=== PATIENT | male | born 1995 | race Caucasian/White ===

== ENCOUNTER 2016-01-22 15:08 | Inpatient (IN) | payer OTHER ==
[2016-01-22 15:53] LABS: % IMMATURE GRANULYOCYTES 0.3 % (0.0-1.1); ABSOLUTE IMMATURE GRANULOCYTES 0.02 10^3/uL (0.00-0.10); ADD DIFF? NO; ADD MORPH? NO; ADD SCAN? NO; ATYPICAL LYMPHOCYTE FLAG 10 (0-99); FRAGMENT RBC FLAG 0 (0-99); HEMATOCRIT 49.3 % (40.0-51.0); HEMOGLOBIN 17.2 g/dL (13.7-17.5); LEFT SHIFT FLG 0 (0-99); LIPEMIA HEMOLYSIS FLAG 90 (0-99); MEAN CELL HEMOGLOBIN 31.7 pg (27.9-34.1); MEAN CELL HEMOGLOBIN CONCENTR. 34.9 g/dL (32.4-36.7); MEAN PLATELET VOLUME 8.9 fL (8.7-11.7); PLATELET CLUMPS FLAG 0 (0-99); PLATELET COUNT 341 10^3/uL (150-400); RED BLOOD CELL COUNT 5.42 10^6/uL (4.40-6.38); RED CELL DISTRIBUTION WIDTH 11.3 % (11.5-15.2)
--- NOTE | 2016-01-22 16:07 | EDPHY ---
H & P Smoking Status: Never smoked Time Seen by Provider: 01/22/16 15:25 HPI/ROS: Hallucinations, paranoia. 20-year-old male who presents via private vehicle. Per father, he had been traveling around the country with his mother (who is schizophrenic) from October 2014 to October 2015. When he returned to his father's care his father reported that he was a completely different person. His father notes he seemed to be having auditory and visual hallucinations and has become more paranoid. He denies SI or HI at this time. He reports that while traveling around he hit his head on a rock in [place] but has no other medical complaints at this time. Constitutional: No fever, no chills. No weakness. Eyes: No discharge. No changes in vision. ENT: No sore throat. No nasal congestion or rhinorrhea. Respiratory: No cough. No shortness of breath. Cardiac: No chest pain, no palpitations. Gastrointestinal: No abdominal pain, no vomiting, no diarrhea. Genitourinary: No hematuria. No dysuria or increased frequency with urination. Musculoskeletal: No back pain. No neck pain. No myalgias or arthralgias. Skin: No rashes. Neurological: No headache. No focal weakness or altered sensation. Past medical history: Denies. Social history: Here with father. General Appearance: Alert, no distress. This patient is responding to questions appropriately and in full sentences. This patient appears well- hydrated and well-nourished. Eyes: Pupils equal and round no pallor or injection. No lid edema, erythema or injection. Head: Normocephalic atraumatic. Respiratory: There are no retractions, lungs are clear to auscultation with good air movement bilaterally. Cardiovascular: Regular rate and rhythm. No murmur. Gastrointestinal: Abdomen is soft and nontender, no masses, bowel sounds normal. No focal tenderness at McBurney's point. No Ahmadi sign. Neurological: Motor sensory function is grossly intact. Cranial nerves are normal. Gait is normal. Skin: Warm and dry, no rashes. Musculoskeletal: Neck is supple and nontender. No midline or paracervical C- spine tenderness. Extremities are symmetrical. All joints range without pain or impingement. Psychiatric: No agitation. Flat affect. EKG: Imaging: Procedures: Emergency department course: The patient has been offered Zyprexa, which he initially declined. He understands that he can request this at any time. He was medically cleared by myself at 4:30 p.m.. Behavioral Health is aware. 8:50 p.m., no further issues during my shift. Patient is to be evaluated by Behavioral Health. This should occur shortly. His care was turned over to Dr. Isidro Keen at 9:00 p.m.. The differential diagnosis on this patient includes but is not limited to schizophrenia, bipolar, mood disorder. This represents a partial list of diagnoses considered. These considerations are based on history, physical exam , past history, reassessment and diagnostic testing. (Juan Winchester) Constitutional: Initial Vital Signs Temperature (C) 36.7 C 01/22/16 15:15 Heart Rate 82 01/22/16 15:15 Respiratory Rate 16 01/22/16 15:15 Blood Pressure 138/92 H 01/22/16 15:15 O2 Sat (%) 97 01/22/16 15:15 O2 Delivery Mode Room Air Allergies/Adverse Reactions: No Known Allergies Allergy (Unverified 01/22/16 15:15) Home Medications: Medication Instructions Recorded NK [No Known Home Meds] 01/22/16 Medical Decision Making ED Course/Re-evaluation: 2199: Patient signed over to me at 9:00 p.m. shift change. no acute events for the brief period of time that I have had. Patient is voluntary and pending evaluation. Patient having increasing auditory visual hallucinations most likely underlying schizophrenia. Patient be signed over to Dr. Kinney at 10PM shift change. Need EVAL. (Isidro Keen) 2:36 a.m.- I have received sign-out on this patient from Dr. Keen at change of shift at approximately 10:30 p.m. last night. Patient has remained stable during his time in the emergency room. He was just evaluated by the mental health worker who feels that he needs inpatient hospitalization. We have placed him on an M1 hold. The attending psychiatrist has recommended medication for him including Benadryl, Risperdal, Ativan I will order this for him. [facility]. 6:30 a.m.- The patient has remained stable throughout the remainder of my shift. He is awaiting inpatient hospitalization. The case will be signed out at 7:[address] Amato. (Haritha Kinney) Other Provider: Patient's care transferred to [facility] at 7:00 a.m.. Patient has what appears to be new onset schizophrenia is having auditory hallucinations. He has been medically cleared and evaluated by Mental Health. They plan to place him likely at [address] [place] [address]. 12:50 p.m. the patient has been evaluated by Mental Health. He has been accepted at [address] [place] [address]. I have completed transfer paperwork. Accepted by Dr. Medina. (Gregory Amato) - Data Points Laboratory Results: Laboratory Results 01/22/16 15:40 01/22/16 15:40 Medications Given: Discontinued Medications Diphenhydramine HCl (Benadryl) 50 mg PO EDNOW ONE Stop: 01/23/16 02:38 Last Admin: 01/23/16 02:50 Dose: 50 mg Lorazepam (Ativan) 1 mg PO EDNOW ONE Stop: 01/23/16 01:06 Last Admin: 01/23/16 01:10 Dose: 1 mg Risperidone (Risperdal) 2 mg PO ONCE ONE Stop: 01/23/16 02:38 Last Admin: 01/23/16 02:50 Dose: 2 mg Departure - Departure Disposition: [facility] IP Clinical Impression: Hallucinations, Paranoia Condition: Fair Report Scribed for: Juan Winchester Report Scribed by: Juan Diego Singh Date of Report: 01/22/16 Time of Report: 16:07
[2016-01-22 16:23] LABS: ANION GAP 17 mEq/L (8-20); CALCIUM 9.6 mg/dL (8.5-10.4); CARBON DIOXIDE 27 mEq/l (22-31); CHLORIDE 103 mEq/L (97-110); CREATININE 1.3 mg/dL (0.7-1.3); ETHANOL SERUM < 10 mg/dL (0-10); GLOMERULAR FILTRATION RATE > 60; GLUCOSE 81 mg/dL (70-100); POTASSIUM 4.3 mEq/L (3.5-5.2); SODIUM 143 mEq/L (134-144)
[2016-01-23] MEDS ORDERED: LORazepam 1 MG TAB PO ONE (01:05)
[2016-01-23] MEDS ORDERED: diphenhydrAMINE 25 MG CAP PO ONE (02:37)
[2016-01-23] MEDS ORDERED: risperiDONE 2 MG TAB PO ONE (02:37)
[2016-01-23 03:01] LABS: ALBUMIN 4.8 g/dL (3.5-5.0); BILIRUBIN,TOTAL 0.7 mg/dL (0.1-1.4); BILIRUBIN-CONJUGATED 0.3 mg/dL (0.0-0.5); BILIRUBIN-UNCONJUGATED 0.4 mg/dL (0.0-1.1); TOTAL PROTEIN 7.8 g/dL (6.3-8.2)
[2016-01-23] MEDS ORDERED: MAG HYDROX/AL HYDROX/SIMETH 30 ML UDCUP PO PRN (17:10)
[2016-01-23] MEDS ORDERED: NICOTINE POLACRILEX 2 MG GUM B PRN (17:10)
[2016-01-23] MEDS ORDERED: ACETAMINOPHEN 325 MG TAB PO PRN (17:10)
[2016-01-23] MEDS ORDERED: OLANZapine DISINTEGR 10 MG TAB PO PRN (17:10)
[2016-01-23] MEDS ORDERED: MAGNESIUM HYDROXIDE 30 ML UDCUP PO PRN (17:10)
--- NOTE | 2016-01-24 14:13 | BAPA ---
[f rep st] ADMISSION PSYCHIATRIC ASSESSMENT DATE OF SERVICE: 01/24/2016 CHIEF COMPLAINT: "I might have a lack of energy in my brain." HISTORY OF PRESENT ILLNESS: Patient is a 20-year-old male with no recent formal psychiatric diagnosi s or treatment. He states that he was diagnosed with attention deficit hyperactivity disorder in the 3rd grade and briefly took Adderall, but other than that, has had no interaction, by his report, wit h the mental health system. He was brought in by his father on the day prior to [facility] due to some odd behaviors. He had apparently been feeling paranoid by his own desc ription and by his father's observations. He believed others were talking about him, and he stated t hat he thought that people could read his mind. On one occasion, he and his father were in a restaur ant, and he stood up and began yelling at other patrons, stating that they were reading his mind. He was asked to leave by the theatre manager, who threatened to call the police. Patient states that this happ ens to him frequently, where he believes that others can read his mind. He left a note on a neighbor 's door asking him to quit waking him up in the morning because "I am not a Marine." The patient sta amanda that he knows he is not a Marine, but he thought that the other person thought he was a Marine an d furthermore states that he probably had never woken him up. He does describe a process of getting caught up with concepts and thoughts in his head, and then having trouble discriminating reality. He states that this comes from his mother, in his opinion, as he has spent a lot of recent time with rei r. He states that they traveled for over a year living in a van and driving all over the [facility]. He states that they would camp and that she frequently believed people were following [facility] and that there was a group of people wanting to harm them. The patient states that he initially w as able to dismiss this, but as time went on, he also began to feel this way as well. He correlates this, however, with his marijuana use, and states that when they lived in [place] and he was dabbi ng and smoking on a daily basis, that he began to really believe some of the things his mother was sa chavez. The patient recently returned to live with his father approximately a month ago, after his mot her decided to move back to [place] to be near her family. The patient states that she was "really par anoid", and he felt like he would be better off staying with his dad. He has been staying at his fat her's home in [place], but states that he is feeling afraid and lonely there because his father i s gone frequently. He states that his father delivers for [employer] and that he works 6 days a week and with the holidays is gone for long hours at a time. The patient states that he begins to f eel more and more anxious and "I begin looking around wondering who is going to harm me." He then st ates that he believes that "people are reading my mind", and that he is unsafe even in his father's h ome. He reports hearing voices in the past that are very derogatory, but states that he has not hear d these since he left [place]. He states that they correlated directly with dabbing. The patient reports cutting back on his marijuana use, as he notes that it worsens his psychosis, and has only s moked once in the last 2 weeks. He states that he just needs to "detox from all substances." He sta amanda he is not interested in any medications and does not want to do any drugs, but needs a safe place to be while his brain clears. PAST PSYCHIATRIC HISTORY: Significant for no previous psychiatric hospitalizations. He was diagnose d with attention deficit hyperactivity disorder in the 3rd grade and took Adderall briefly. ALLERGIES: No known medical allergies. CURRENT MEDICATIONS: None. PAST MEDICAL HISTORY: Noncontributory. SOCIAL HISTORY: Patient grew up mostly in [place], [place]. His parents were when he was 13. The patient lived with his mother and older brother. He states that his mother began having her own psychiatric problems several years later, causing her to lose her job and the family to lose their home. His older brother then went to live with his father in [place], and the patient howard t with his mother to [place] to live with her family. He states eventually they moved back to [place] , but that his credits did not transfer, and he was unable to graduate from high school. He worked s ome odd jobs, especially in [employer] intermittently, though this was also inconsistent. He spent about a year traveling around with his mother recently. He denies any legal problems or other stress ors. He is not currently employed. He has no history of abuse. He has no history. SUBSTANCE ABUSE HISTORY: Patient states he first used marijuana at the age of 13, and he used up to daily including dabbing since that time. He denies any other drugs. He has used alcohol occasionall y in the past, though not for several years. FAMILY HISTORY: Patient's mother has been diagnosed schizophrenic, and his father has a history of a lcohol abuse in the past. ADMISSION LABORATORY: CBC is normal. Serum chemistries are normal. Liver function is normal. Urin e drug screen shows no substances of abuse, and alcohol is less than detectable. MENTAL STATUS EXAMINATION: Reveals a thin, adequately groomed male. He is dressed appropriately in hospital garb. He interacts well with the examiner, maintaining intermittent, but adequate eye conta ct. He does seem distracted at times, and makes odd facial gestures or grunting noises as if suppres sing either an urge or thought or even somehow responding to internal stimuli. His affect is constri cted, stable, and appropriate. His mood is described as "fine." His thought process is linear and g oal directed except for some possible blocking consistent with this internal preoccupation. His th ght content reveals the reports of paranoia, thought broadcasting, thought insertion, ideas of refere nce, and auditory hallucinations. He is alert and oriented to person, place, time, and situation. H is sensorium is clear. His intellect appears to be average as evidenced by his educational occupatio nal history, his fund of knowledge, and vocabulary. He denies any thoughts of suicide, homicide or v iolence. His insight and judgment appear to be fair. 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 Poss ible schizophrenia chronic paranoid type with acute exacerbation, homelessness, unemployment, mental illness. The patient is a very pleasant 20-year-old male who presents at this time with clear psychotic sympto ms. This certainly could all be due to the cannabis, though the character of it certainly makes one concerned about a thought disorder. He could be having a first break of schizophrenia and, with a st monster family history, this may be likely. He is unwilling currently to take any antipsychotic medicat ions, though I have discussed with him the risks, benefits, and alternatives of Risperdal and have sh own him that I have written it on an as-needed basis and at bedtime. He states he will consider this . Estimated length of stay is 5-7 days. /[id number]/MODL
--- NOTE | 2016-01-24 18:54 | BCON ---
[f rep st] BEHAVIORAL HEALTH CONSULTATION INTERNAL MEDICINE CONSULTATION DATE OF CONSULTATION: 01/24/2016 REFERRING PHYSICIAN: Steve George MD REASON FOR CONSULTATION: Medical clearance for inpatient behavioral health stay. HISTORY OF PRESENT ILLNESS: Mr. Dennis was brought to the emergency department by his father. He had been living with his father for several weeks after traveling for a year with his mother, and his father noticed that he his behavior was quite different, and that he was having auditory and visual hallucinations and becoming paranoid. He was evaluated by the mental health team and admitted for further psychiatric care. He is currently without acute complaints. He says that he was feeling "blurry" earlier today, but then he talked to someone and is not feeling blurry anymore. PAST MEDICAL HISTORY: Reports a history of diagnosis of attention deficit hyperactivity disorder when he was in the 3rd grade and brief treatment with Adderall. Otherwise, he denies any past medical or surgical history. MEDICATIONS: He was on no medications. ALLERGIES: There are no known drug allergies. SOCIAL HISTORY: He never finished high school. He has worked in [employer]. He is a nonsmoker. He has had regular marijuana use since he was an early teenager, but has abstained now for several weeks. He is living with his father. He had previously been traveling with his mother for about a year. FAMILY HISTORY: His mother has mental illness and possibly schizophrenia. Father has a history of alcohol abuse. REVIEW OF SYSTEMS: He reports he has a hard time sitting still. He denies weight loss, cough, dyspnea, nausea, vomiting, diarrhea, or constipation, fevers or chills, and otherwise a 10-point review of systems is negative. PHYSICAL EXAM: VITALS: Blood pressure is 135/82, heart rate is 60, respiratory rate 14, oxygen saturation is 93% on room air, temperature is 36.7 degrees centigrade. His weight is 68 kg for a body mass index of 20.9. GENERAL : This is a well-nourished, well-developed man, appears his chronologic age, cooperative, and in no acute distress. HEENT: Extraocular movements are intact. Pupils are equal, round, reactive to light. Mucous membranes are moist. Dentition is in good condition. There are no oropharyngeal mucosal lesions noted and no posterior oropharyngeal mucus. NECK: Supple. HEART: Regular rate and rhythm with no murmurs, rubs, or gallops. LUNGS: Clear to auscultation bilaterally. ABDOMEN: Soft, nontender, nondistended with normoactive bowel sounds. EXTREMITIES: There is no cyanosis, clubbing, or edema. NEUROLOGIC: He is alert and oriented x3. Cranial nerves 2-12 are grossly intact. There is no focal weakness. Sensation is intact to light touch and gait is within normal limits. He has frequent involuntary movements of his legs and of his facial expressions with raising of the eyebrows, more so on the left than the right, and some movements of his head and his neck. LABORATORY STUDIES: Drawn in the emergency department: CBC was overall within normal limits, but for a slightly low RDW and a very slight deficit to eosinophils by percent of no clinical significance. Serum chemistry revealed normal renal function, electrolytes, and liver functions. Toxicology screen in the serum was negative for ethyl alcohol and the urine was negative for substances of abuse. ASSESSMENT AND PLAN: 1. Mental health issues, pending further evaluation and management per Psychiatry and the mental health team. 2. Involuntary movements of unclear etiology. Advise observing for resolution and might consider a consult with a neurologist if there is no improvement by the time he is discharged. I see no medical contraindications to Mr. Dennis's continued stay in the inpatient behavioral health unit or to any psychiatric medications, or procedures. Thank you very much for including me in the care of Mr. Dennis, and please do not hesitate to contact me or the hospitalist service should there be need for further medical evaluation. /[id number]/MODL MTDD
[2016-01-24] MEDS: RISPERIDONE 1 MG ODT TAB SL SCH (21:27)
--- NOTE | 2016-01-25 12:37 | SOAPPROG ---
SOAP Progress Note Assessment/Plan: Assessment: Plan: 01/25/16 12:37 Remains quite ill. Refusing medication treatment. Will place on STC due to grave disability and continue to encourage compliance. Will monitor to see if sx's improve with distance from substance use. May consider COM if no improvement. Subjective: Pt seen, discussed with staff. Reports feeling "a lot better." Remains isolative and odd, struggling to interact appropriately or communicate effectively with others. He spent most of the morning in bed. He refused the Risperdal last night because he continues to state he does not need any medication. He continues to make odd facial grimaces, possibly in response to internal stimuli though he denies any AH's. Objective: Vital Signs Temp Pulse Resp BP Pulse Ox 36.8 C 71 16 121/78 H 98 01/25/16 06:00 01/25/16 06:00 01/25/16 06:00 01/25/16 06:00 01/25/16 06:00 MSE: Odd interaction. Pt jumps up when I call his name in group room. He then follows directly behind me down the waite to my office. He drops down abruptly onto the chair and faces 90 degrees away from me. He rocks back and forth, eyes darting around the room and floor. Does not make purposeful eye contact. Frequently makes grimacing facial expressions, opening eyes widely and then closing them tightly. He also rolls his eyes as if trying to focus. He makes some odd mouth movements as well, occasionally moaning or grunting. His speech is rapid, soft, slurred at times. He demonstrates some thought blocking, likely due to intrusion of internal stimuli though he denies this. TC reveals very poor insight. States he wants to leave the hospital and get a job. He also states he cannot return to his father's home "because he doesn't want me there." - Time Spent With Patient Time Spent With Patient: 25" - Pending Discharge Pending Discharge Within 24 Hours: No Pending Discharge Within 48 Hours: No ICD10 Worksheet Patient Problems: Problems Problem Status Diagnosed Hallucinations Acute Paranoia Acute
[2016-01-25] MEDS ORDERED: IBUPROFEN 600 MG TAB PO PRN (13:07)
[2016-01-25] MEDS: RISPERIDONE 1 MG ODT TAB SL SCH (20:24)
[2016-01-26] MEDS: RISPERIDONE 1 MG ODT TAB SL SCH (12:53)
--- NOTE | 2016-01-26 16:28 | SOAPPROG ---
SOAP Progress Note Assessment/Plan: Assessment: Plan: 01/25/16 12:37 Remains quite ill. Refusing medication treatment. Will place on STC due to grave disability and continue to encourage compliance. Will monitor to see if sx's improve with distance from substance use. May consider COM if no improvement. 01/26/16 16:27 Remains psychotic. Etiology of abnormal movements is unclear. Will continue to encourage meds, monitor. Subjective: Pt seen, discussed with staff. Reports feeling "just fine." Remains odd, impulsive, agitated at times. Struggles to interact or communicate with others in a reasonable manner. He continues to refuse meds. Objective: Vital Signs Temp Pulse Resp BP Pulse Ox 36.6 C 91 16 128/99 H 96 01/26/16 06:12 01/26/16 06:12 01/26/16 06:12 01/26/16 06:12 01/26/16 06:12 MSE: Notable hyperactivity, fidgety. Makes frequent grimacing facial movements , closely eyes tightly or rolls them. Moves lips as if speaking silently. TP disorganized. TC reveals paranoia, IOR's. - Time Spent With Patient Time Spent With Patient: 25" - Pending Discharge Pending Discharge Within 24 Hours: No Pending Discharge Within 48 Hours: No ICD10 Worksheet Patient Problems: Problems Problem Status Diagnosed Hallucinations Acute Paranoia Acute
--- NOTE | 2016-01-27 16:50 | SOAPPROG ---
SOAP Progress Note Assessment/Plan: Assessment: Plan: 01/25/16 12:37 Remains quite ill. Refusing medication treatment. Will place on STC due to grave disability and continue to encourage compliance. Will monitor to see if sx's improve with distance from substance use. May consider COM if no improvement. 01/26/16 16:27 Remains psychotic. Etiology of abnormal movements is unclear. Will continue to encourage meds, monitor. 01/27/16 16:49 More organized today. I doubt he meets criteria for COM. Will monitor over the and continued to encourage meds. Decide on Saturday whether to pursue COM. Subjective: Pt seen, discussed with staff. Reports feeling "really good." Took the Risperdal yesterday afternoon and states he felt "calmer." He then states he woke up this morning and "felt really weird." He cannot explain what he means by this. He now refuses to take any further meds. CC states pt can return to his father's home. Objective: Vital Signs Temp Pulse Resp BP Pulse Ox 36.6 C 64 16 124/78 H 96 01/27/16 01:06 01/27/16 01:06 01/26/16 06:12 01/27/16 01:06 01/26/16 06:12 - Time Spent With Patient Time Spent With Patient: 25" - Pending Discharge Pending Discharge Within 24 Hours: No Pending Discharge Within 48 Hours: No ICD10 Worksheet Patient Problems: Problems Problem Status Diagnosed Hallucinations Acute Paranoia Acute
[2016-01-27] MEDS: LORazepam 0.5 MG TAB PO PRN (21:15)
[2016-01-27] MEDS: RISPERIDONE 1 MG ODT TAB SL SCH (21:16)
[2016-01-28] MEDS: IBUPROFEN 200 MG TAB PO PRN ×2 (11:04→19:52)
--- NOTE | 2016-01-28 11:22 | SOAPPROG ---
SOAP Progress Note Assessment/Plan: Assessment: 20 yo with hx of ADHD since 3rd gr, now presenting for 1st psych admit with prominent psychotic symptoms, either due to subst use/THC and dabbing use, vs primary underlying psychotic d/o exacerbated by subst use. Had spent past year traveling with schizophrenic mother and using substances. not wanting to take meds Plan: -ibuprofen prn -adamantly refuses zyprexa, and does not want risperdal, would consider seroquel -cont on [facility] 01/28/16 11:19 per staff, slept 7hrs. Refuses Risperdal b/c states it makes him psychotic, asked staff to tell MD he'd rather take Adderall and Ativan. apparently also continues internally distracted but denies psychotic symptoms. 01/28/16 16:09 States he's been doing fine, feeling good about himself, and apologized for getting agitated earlier today. Feels the medicine caused him to have bad dreams and "more delusional the first morning", and anxious. this is why he has been refusing his medication. But doesn't want a prolonged hospitalization just b/c he doesn't take the pills. Feels he needs his Adderall, however. Insists this does NOT change his brain chemistry. (became argumentative) States no longer hearing voices, but he did used to after using drugs. +AH when dabbing, last time dabbed 2mo ago. Also reports +AH the AM after he took Risperdal. Doesn't want to take any meds b/c it will change his brain chemistry. Feels easily aggravated. Tried Ativan- Doesn't want Ativan, states "it makes me dopey". Feels adderall and exercise help the most. mse: cooperative but easily agitated, with raising voice in frustration at times incr psychomotor activity. mood "fine". affect calm, but recently somewhat labile. maintaining behav control. tp/tc- perseverative on needing adderall. no overt delusions; hypervigilant. denied SI/HI, Denied AH/VH. poor insight/impaired jdgmt. cognition conversationally intact Objective: Vital Signs Temp Pulse Resp BP Pulse Ox 36.5 C 67 16 128/76 H 98 01/28/16 06:00 01/28/16 06:00 12/17/16 06:00 01/28/16 06:00 01/28/16 06:00 - Time Spent With Patient Time Spent With Patient: 20 min - Pending Discharge Pending Discharge Within 24 Hours: No Pending Discharge Within 48 Hours: No ICD10 Worksheet Patient Problems: Problems Problem Status Diagnosed Hallucinations Acute Paranoia Acute
[2016-01-28] MEDS: LORazepam 0.5 MG TAB PO PRN (19:52)
[2016-01-28] MEDS: RISPERIDONE 1 MG ODT TAB SL SCH (19:52)
--- NOTE | 2016-01-29 10:21 | SOAPPROG ---
SOAP Progress Note Assessment/Plan: Assessment: 20 yo with hx of ADHD since 3rd gr, now presenting for 1st psych admit with prominent psychotic symptoms, either due to subst use/THC and dabbing use, vs primary underlying psychotic d/o exacerbated by subst use. Had spent past year traveling with schizophrenic mother and using substances. not wanting to take any psychotropic meds, although feels he needs adderall. Plan: agreed to try seroquel. will start 50mg tid prn. continue to monitor for improvement with more time off substances, structure and sleep/meals 01/28/16 11:19 per staff, slept 7hrs. Refuses Risperdal b/c states it makes him psychotic, asked staff to tell MD he'd rather take Adderall and Ativan. apparently also continues internally distracted but denies psychotic symptoms. 01/28/16 16:09 States he's been doing fine, feeling good about himself, and apologized for getting agitated earlier today. Feels the medicine caused him to have bad dreams and "more delusional the first morning", and anxious. this is why he has been refusing his medication. But doesn't want a prolonged hospitalization just b/c he doesn't take the pills. Feels he needs his Adderall, however. Insists this does NOT change his brain chemistry. (became argumentative) States no longer hearing voices, but he did used to after using drugs. +AH when dabbing, last time dabbed 2mo ago. Also reports +AH the AM after he took Risperdal. Doesn't want to take any meds b/c it will change his brain chemistry. Feels easily aggravated. Tried Ativan- Doesn't want Ativan, states "it makes me dopey". Feels adderall and exercise help the most. mse: cooperative but easily agitated, with raising voice in frustration at times incr psychomotor activity. denies SI/HI, Denies AH/VH 01/29/16 10:16 per staff, pt slept 8hr. refused HS risperdal again. noted to be generally isolative, "antsy", easily distracted with multiple stimuli then becomes agitated. 01/29/16 13:56 on interview, c/o no energy, and "wheels aren't spinning" (thoughts), yesterday brain felt like mush, Ativan helped. blames it on Risperdal. was on phone w/his dad, yelling earlier today. states his F wasn't listening to him, states F said "you need help, you need to stop smoking pot...", but I told him "that's why I'm here!" requests adderall. asks for privs off unit. still pacing at times, psychomotor agitation did attend yoga today. cooperative, fair/good eye contact, some psychomotor agitation, nml rate/vol speech, tp/tc-easily distracted, denied ah/vh but question internal stimuli. denied any si/hi. perseverative on need for adderall. Objective: Vital Signs Temp Pulse Resp BP Pulse Ox 36.7 C 85 14 131/84 H 96 01/29/16 06:00 01/29/16 06:00 01/29/16 06:00 01/29/16 06:00 01/29/16 06:00 - Time Spent With Patient Time Spent With Patient: 20min - Pending Discharge Pending Discharge Within 24 Hours: No Pending Discharge Within 48 Hours: No ICD10 Worksheet Patient Problems: Problems Problem Status Diagnosed Hallucinations Acute Paranoia Acute
[2016-01-29] MEDS: IBUPROFEN 200 MG TAB PO PRN (16:09)
[2016-01-29] MEDS ORDERED: QUEtiapine FUMARATE 50 MG TAB PO PRN (16:38)
[2016-01-29] MEDS ORDERED: QUEtiapine FUMARATE 100 MG TAB PO SCH (21:00)
[2016-01-30] MEDS: IBUPROFEN 200 MG TAB PO PRN (11:16)
--- NOTE | 2016-01-30 16:01 | SOAPPROG ---
SOAP Progress Note Assessment/Plan: Assessment: 20 yo with hx of ADHD since 3rd gr, now presenting for 1st psych admit with prominent psychotic symptoms, either due to subst use/THC and dabbing use, vs primary underlying psychotic d/o exacerbated by subst use. Had spent past year traveling with schizophrenic mother and using substances. not wanting to take any psychotropic meds, although feels he needs adderall. Plan: Start scheduled zyprexa 10mg qhs. 01/28/16 11:19 per staff, slept 7hrs. Refuses Risperdal b/c states it makes him psychotic, asked staff to tell MD he'd rather take Adderall and Ativan. apparently also continues internally distracted but denies psychotic symptoms. States he's been doing fine, feeling good about himself, and apologized for getting agitated earlier today. Feels the medicine caused him to have bad dreams and "more delusional the first morning", and anxious. this is why he has been refusing his medication. But doesn't want a prolonged hospitalization just b/c he doesn't take the pills. Feels he needs his Adderall, however. Insists this does NOT change his brain chemistry. (became argumentative) States no longer hearing voices, but he did used to after using drugs. +AH when dabbing, last time dabbed 2mo ago. Also reports +AH the AM after he took Risperdal. Doesn't want to take any meds b/c it will change his brain chemistry. Feels easily aggravated. Tried Ativan- Doesn't want Ativan, states "it makes me dopey". Feels adderall and exercise help the most. mse: cooperative but easily agitated, with raising voice in frustration at times incr psychomotor activity. denies SI/HI, Denies AH/VH 01/29/16 10:16 per staff, pt slept 8hr. refused HS risperdal again. noted to be generally isolative, "antsy", easily distracted with multiple stimuli then becomes agitated. on interview, c/o no energy, and "wheels aren't spinning" (thoughts), yesterday brain felt like mush, Ativan helped. blames it on Risperdal. was on phone w/his dad, yelling earlier today. states his F wasn't listening to him, states F said "you need help, you need to stop smoking pot...", but I told him "that's why I'm here!" requests adderall. asks for privs off unit. still pacing at times, psychomotor agitation did attend yoga today. cooperative, fair/good eye contact, some psychomotor agitation, nml rate/vol speech, tp/tc-easily distracted, denied ah/vh but question internal stimuli. denied any si/hi. perseverative on need for adderall. 01/30/2016 14:35 sleeping well, no behavioral issues, attending groups did not try seroquel prn, and no dose was scheduled inadvertently. pt had stated he would definitely NOT take risperdal, and although yesterday he also said zyprexa wasn't good for him either, today he admits not thinking he actually tried zyprexa. discussed starting trial of this med, as pt still with some thought disorganization and appears internally distracted at times. does have family hx of szp (mother) and pt had been using substances last year until recently while traveling with her. cooperative, fair eye contact, some hyperkinetic jerky movements at times ( improved from admission), easily distracted and often looking around, nml speech rate/vol, restricted affect, mood "fine", tp/tc-denied ah/vh or si/hi, no overt delusions, concrete. no physical complaints Objective: Vital Signs Temp Pulse Resp BP Pulse Ox 36.6 C 88 16 115/76 97 01/30/16 06:00 01/30/16 06:00 01/30/16 06:00 01/30/16 06:00 01/30/16 06:00 - Time Spent With Patient Time Spent With Patient: 20min - Pending Discharge Pending Discharge Within 24 Hours: No Pending Discharge Within 48 Hours: No ICD10 Worksheet Patient Problems: Problems Problem Status Diagnosed Hallucinations Acute Paranoia Acute
[2016-01-30] MEDS: OLANZapine DISINTEGR 10 MG TAB PO SCH (20:17)
--- NOTE | 2016-01-31 13:11 | SOAPPROG ---
SOAP Progress Note Assessment/Plan: Assessment: 20 yo with hx of ADHD since 3rd gr, now presenting for 1st psych admit with prominent psychotic symptoms, either due to subst use/THC and dabbing use, vs primary underlying psychotic d/o exacerbated by subst use. Had spent past year traveling with schizophrenic mother and using substances. not wanting to take any psychotropic meds, although feels he needs adderall. Plan: cont zyprexa 10mg qhs cont hydroxyzine 25mg q6hr prn on [facility] 01/28/16 11:19 per staff, slept 7hrs. Refuses Risperdal b/c states it makes him psychotic, asked staff to tell MD he'd rather take Adderall and Ativan. apparently also continues internally distracted but denies psychotic symptoms. States he's been doing fine, feeling good about himself, and apologized for getting agitated earlier today. Feels the medicine caused him to have bad dreams and "more delusional the first morning", and anxious. this is why he has been refusing his medication. But doesn't want a prolonged hospitalization just b/c he doesn't take the pills. Feels he needs his Adderall, however. Insists this does NOT change his brain chemistry. (became argumentative) States no longer hearing voices, but he did used to after using drugs. +AH when dabbing, last time dabbed 2mo ago. Also reports +AH the AM after he took Risperdal. Doesn't want to take any meds b/c it will change his brain chemistry. Feels easily aggravated. Tried Ativan- Doesn't want Ativan, states "it makes me dopey". Feels adderall and exercise help the most. mse: cooperative but easily agitated, with raising voice in frustration at times incr psychomotor activity. denies SI/HI, Denies AH/VH 01/29/16 10:16 per staff, pt slept 8hr. refused HS risperdal again. noted to be generally isolative, "antsy", easily distracted with multiple stimuli then becomes agitated. on interview, c/o no energy, and "wheels aren't spinning" (thoughts), yesterday brain felt like mush, Ativan helped. blames it on Risperdal. was on phone w/his dad, yelling earlier today. states his F wasn't listening to him, states F said "you need help, you need to stop smoking pot...", but I told him "that's why I'm here!" requests adderall. asks for privs off unit. still pacing at times, psychomotor agitation did attend yoga today. cooperative, fair/good eye contact, some psychomotor agitation, nml rate/vol speech, tp/tc-easily distracted, denied ah/vh but question internal stimuli. denied any si/hi. perseverative on need for adderall. 01/31/16 15:32 slept overnight. attending groups. states no med s/e, slept well, and feels his thoughts are more focused. felt a little tired this AM but fine now. wants to go home to father. cooperative, fair eye contact, looking around, nml speech, still with some abn movements, mood "good", affect restricted and no longer labile, tp/tc- fairly linear/goal-directed, no overt delusions, denied AH/VH or any SI/HI. i/j-limited not convinced pt believes he needs medication and won't return to THC, however is stating this. nsg note this am indicated that pt told them his mother said for him just to cooperate and take meds Objective: Vital Signs Temp Pulse Resp BP Pulse Ox 36.8 C 59 L 12 116/76 98 01/31/16 06:00 01/31/16 06:00 01/31/16 06:00 01/31/16 06:00 01/31/16 06:00 Medications Generic Name Dose Route Start Last Admin Trade Name Freq PRN Reason Stop Dose Admin Hydroxyzine HCl 25 mg 01/30/16 15:59 Hydroxyzine Hcl PO 07/28/16 15:58 Q6HRS PRN Anxiety Olanzapine 10 mg 01/30/16 21:00 01/30/16 20:17 Zyprexa Zydis PO 07/28/16 20:59 10 mg HS AC Discontinued Medications Generic Name Dose Route Start Last Admin Trade Name Freq PRN Reason Stop Dose Admin Lorazepam 0.5 - 1 mg 01/23/16 17:10 01/28/16 19:52 Ativan PO 07/21/16 17:09 1 mg Q4 PRN Anxiety, Able to Take PO Quetiapine Fumarate 50 mg 01/29/16 16:38 Seroquel PO 07/27/16 16:37 Q4HRS PRN psychotic agitation - Time Spent With Patient Time Spent With Patient: 20 min - Pending Discharge Pending Discharge Within 24 Hours: No Pending Discharge Within 48 Hours: No ICD10 Worksheet Patient Problems: Problems Problem Status Diagnosed Hallucinations Acute Paranoia Acute
[2016-01-31] MEDS: OLANZapine DISINTEGR 10 MG TAB PO SCH (20:17)
[2016-02-01] MEDS ORDERED: OLANZapine DISINTEGR 10 MG TAB PO SCH (10:18)
--- NOTE | 2016-02-01 10:58 | SOAPPROG ---
SOAP Progress Note Assessment/Plan: Assessment: Pt is a 20 y/o S male with no previous psych hx other than ADHD as a child admitted for acute psychosis. He has a mother who has a Dx of Schizophrenia and and pt has been using large amounts of cannabis. He currently present with sx of Schizophrenia. He did not like Risperdal and this was change to Zyprexa but pt will most likely not be compliant upon D/C so we will change to Invega, as pt is stating he does not like ZYprexa as it is interering with his focusing and wants something more "stimulating." Pt also wants to be put back on his ADHD med but he was told that will not happen here. Plan:D/C Zyprexa Pt on a [facility] start Invega 3mg today 02/01/16 10:53 Subjective: Pt makes bizarre facial gestures-states he needs a more "stimulating" medication and asks to be put back on his ADHD med. Objective: Vital Signs Temp Pulse Resp BP Pulse Ox 36.6 C 59 L 12 140/78 H 95 02/01/16 06:00 02/01/16 06:00 02/01/16 06:00 02/01/16 06:00 02/01/16 06:00 Pt is A+O x4 mood-neutral affect-constricted denies A/V H but may be responding to internal stimuli denies par I no S/H I slept 8 hours last night good appetite called another pt names last night and was asked to leave group thoughts-disorganized at times, logical at others speech-wnl conc-poor I/J-poor - Time Spent With Patient Time Spent With Patient: 20' - Pending Discharge Pending Discharge Within 24 Hours: No Pending Discharge Within 48 Hours: No ICD10 Worksheet Patient Problems: Problems Problem Status Diagnosed Hallucinations Acute Paranoia Acute
[2016-02-01] MEDS: PALIPERIDONE 3 MG TAB.ER PO SCH (15:27)
[2016-02-02] MEDS: PALIPERIDONE 3 MG TAB.ER PO SCH (08:42)
[2016-02-02] MEDS ORDERED: PALIPERIDONE 3 MG TAB.ER PO SCH (09:00)
--- NOTE | 2016-02-02 11:28 | SOAPPROG ---
SOAP Progress Note Assessment/Plan: Assessment: Pt is a 20 y/o S male with no previous psych hx other than ADHD as a child admitted for acute psychosis. He has a mother who has a Dx of Schizophrenia and and pt has been using large amounts of cannabis. He currently present with sx of Schizophrenia. He did not like Risperdal and this was change to Zyprexa but pt will most likely not be compliant upon D/C so we will change to Invega, as pt is stating he does not like ZYprexa as it is interering with his focusing and wants something more "stimulating." Pt also wants to be put back on his ADHD med but he was told that will not happen here. Plan: Pt on a [facility] Increase Invega to 6 mg 02/02/16 11:27 Subjective: Pt feels the Invega is helping him Objective: Vital Signs Temp Pulse Resp BP Pulse Ox 36.6 C 67 14 121/73 H 97 02/02/16 06:24 02/02/16 06:24 02/02/16 06:24 02/02/16 06:24 02/02/16 06:24 Pt is A+O x4 mood-neutral affect-const denies AH but may be responding to int stimuli thoughts-concrete some Par I slept 7 hours attending groups denies S/H I thoughts-logical at times/illogical at other speech-some disorganization I/J-limited - Time Spent With Patient Time Spent With Patient: 20' - Pending Discharge Pending Discharge Within 24 Hours: No Pending Discharge Within 48 Hours: No ICD10 Worksheet Patient Problems: Problems Problem Status Diagnosed Hallucinations Acute Paranoia Acute
[2016-02-03] MEDS: PALIPERIDONE 3 MG TAB.ER PO SCH (09:42)
--- NOTE | 2016-02-03 11:16 | SOAPPROG ---
SOAP Progress Note Assessment/Plan: Assessment: Pt is a 20 y/o S male with no previous psych hx other than ADHD as a child admitted for acute psychosis. He has a mother who has a Dx of Schizophrenia and and pt has been using large amounts of cannabis. He currently present with sx of Schizophrenia. He did not like Risperdal and this was change to Zyprexa but pt will most likely not be compliant upon D/C so we will change to Invega, as pt is stating he does not like ZYprexa as it is interfering with his focusing and wants something more "stimulating." Pt also wants to be put back on his ADHD med but he was told that will not happen here. Plan: Pt on a [facility] Invega increased to 6 mg 02/02/16- no c/o side effects Pt can return to live with father upon D/C-mother is Schizophrenic 02/03/16 11:16 Subjective: no c/o-is internally preoccupied Objective: Vital Signs Temp Pulse Resp BP Pulse Ox 36.3 C 53 L 14 129/84 H 98 02/03/16 06:35 02/03/16 06:35 02/03/16 06:35 02/03/16 06:35 02/03/16 06:35 Pt is A+O x4 +facial movements + does bizarre things-was found standing in room with lights off and shower running-gets up close to window mood-distracted affect-bizarre thoughts-vague denies AH but appears to be responding to internal stimuli no S/H I sleep/appetite-wnl speech-wnl memory/conc-impaired due to psychosis I/J-limited - Time Spent With Patient Time Spent With Patient: 15' - Pending Discharge Pending Discharge Within 24 Hours: No Pending Discharge Within 48 Hours: No ICD10 Worksheet Patient Problems: Problems Problem Status Diagnosed Hallucinations Acute Paranoia Acute
[2016-02-04] MEDS: PALIPERIDONE 3 MG TAB.ER PO SCH (09:37)
--- NOTE | 2016-02-04 11:23 | SOAPPROG ---
SOAP Progress Note Assessment/Plan: Assessment: Pt is a 20 y/o S male with no previous psych hx other than ADHD as a child admitted for acute psychosis. He has a mother who has a Dx of Schizophrenia and and pt has been using large amounts of cannabis. He currently present with sx of Schizophrenia. He did not like Risperdal and this was change to Zyprexa but pt will most likely not be compliant upon D/C so we will change to Invega, as pt is stating he does not like ZYprexa as it is interfering with his focusing and wants something more "stimulating." Pt also wants to be put back on his ADHD med but he was told that will not happen here. Plan: father will visit today to see if pt near baseline-will order AG Pt on a [email or web address] Invega increased to 6 mg 02/02/16- no c/o side effects Pt can return to live with father upon D/C-mother is Schizophrenic 02/04/16 11:21 Subjective: pt asks when he can be released Objective: Vital Signs Temp Pulse Resp BP Pulse Ox 36.3 C 65 14 142/98 H 98 02/04/16 03:36 02/04/16 03:36 02/04/16 03:36 02/04/16 03:36 02/04/16 03:36 Pt is A+O X4 mood-neutral affect-const denies A/V H but may be responding to internal stimuli still focuses on getting Adderall no S/H I denies Par I no bizarre delusions expressed thoughts-logical speech-wnl slept 6 hours memory/conc-fair no IRMA I/J-limited - Time Spent With Patient Time Spent With Patient: 25' - Pending Discharge Pending Discharge Within 24 Hours: No Pending Discharge Within 48 Hours: No ICD10 Worksheet Patient Problems: Problems Problem Status Diagnosed Hallucinations Acute Paranoia Acute
[2016-02-05] MEDS: PALIPERIDONE 3 MG TAB.ER PO SCH (10:37)
--- NOTE | 2016-02-05 12:23 | SOAPPROG ---
SOAP Progress Note Assessment/Plan: Assessment: Pt is a 20 y/o S male with no previous psych hx other than ADHD as a child admitted for acute psychosis. He has a mother who has a Dx of Schizophrenia and and pt has been using large amounts of cannabis. He currently present with sx of Schizophrenia. He did not like Risperdal and this was change to Zyprexa but pt will most likely not be compliant upon D/C so we will change to Invega, as pt is stating he does not like Zyprexa as it is interfering with his focusing and wants something more "stimulating." Pt also wants to be put back on his ADHD med but he was told that will not happen here. Plan: father came 02/04/16 wanting to take pt home on a motorcycle- Pt on a [facility] Invega increased to 6 mg 02/02/16- no c/o side effects Pt can return to live with father upon D/C-mother is Schizophrenic called pt's father 02/04 to update him that pt is still psychotic and that his meds have been changed 3 times due to him not wanting to take something that makes him sedated and that all he wants is Adderall Pt offered an Invega shot today and he declined 02/05/16 12:15 Subjective: no c/o-pt distracted and appears confused Objective: Vital Signs Temp Pulse Resp BP Pulse Ox 36.5 C 62 16 135/89 H 97 02/05/16 06:58 02/05/16 06:58 02/05/16 06:58 02/05/16 06:58 02/05/16 06:58 Pt is A+O x4 pt with bizarre facial movement mood-neutral affect-constricted +AH + bizarre behavior no S/H I thoughts-vague, disorganized speech-wnl memory/conc-poor slept 3.5 hours states being here is making him worse I/J-poor - Time Spent With Patient Time Spent With Patient: 20' - Pending Discharge Pending Discharge Within 24 Hours: No Pending Discharge Within 48 Hours: No ICD10 Worksheet Patient Problems: Problems Problem Status Diagnosed Hallucinations Acute Paranoia Acute
[2016-02-06] MEDS: PALIPERIDONE 3 MG TAB.ER PO SCH (08:48)
[2016-02-06] MEDS: IBUPROFEN 200 MG TAB PO PRN (19:02)
[2016-02-06] MEDS: hydrOXYzine HCL 25 MG TAB PO PRN (20:36)
[2016-02-07] MEDS: PALIPERIDONE 3 MG TAB.ER PO SCH (08:59)
[2016-02-07] MEDS: IBUPROFEN 200 MG TAB PO PRN (13:57)
[2016-02-07] MEDS: hydrOXYzine HCL 25 MG TAB PO PRN (13:57)
--- NOTE | 2016-02-07 14:15 | SOAPPROG ---
SOAP Progress Note Assessment/Plan: Assessment: Plan: 01/25/16 12:37 Remains quite ill. Refusing medication treatment. Will place on [facility] due to grave disability and continue to encourage compliance. Will monitor to see if sx's improve with distance from substance use. May consider COM if no improvement. 01/26/16 16:27 Remains psychotic. Etiology of abnormal movements is unclear. Will continue to encourage meds, monitor. 01/27/16 16:49 More organized today. I doubt he meets criteria for COM. Will monitor over the and continued to encourage meds. Decide on Saturday whether to pursue COM. 02/07/16 14:15 Calmer though still delusional with very poor insight and judgement. CCM. Subjective: LATE ENTRY FOR 02/06/16 Pt seen, discussed with staff and Dr. Santos, chart reviewed. He reports feeling "just fine." States he is ready to go home to his father's home "get back to work." He states he has gotten several messages from potential employers since being here on his cell phone. He states he needs to get his phone in order to check these messages. It is unclear how he knows he has a message if he hasn't checked his phone. He continues to respond to internal stimuli though becomes angry if he asked about this. Meds changed again over the weekend to Invega due to pt's seemingly paranoid refusal to take Zyprexa or Risperdal. Objective: Vital Signs Temp Pulse Resp BP Pulse Ox 36.7 C 78 12 125/68 H 97 02/07/16 06:00 02/07/16 06:00 02/07/16 06:00 02/07/16 06:00 02/07/16 06:00 MSE: Calm, coop. Affect is bright, though somewhat expansive. Abnormal facial expressions and eye and mouth movements continue. Mood is "good." TP tangential. TC reveals paranoid thoughts, RIS. - Time Spent With Patient Time Spent With Patient: 25" - Pending Discharge Pending Discharge Within 24 Hours: No Pending Discharge Within 48 Hours: No ICD10 Worksheet Patient Problems: Problems Problem Status Diagnosed Hallucinations Acute Paranoia Acute
--- NOTE | 2016-02-07 14:19 | SOAPPROG ---
SOAP Progress Note Assessment/Plan: Assessment: Plan: 01/25/16 12:37 Remains quite ill. Refusing medication treatment. Will place on STC due to grave disability and continue to encourage compliance. Will monitor to see if sx's improve with distance from substance use. May consider COM if no improvement. 01/26/16 16:27 Remains psychotic. Etiology of abnormal movements is unclear. Will continue to encourage meds, monitor. 01/27/16 16:49 More organized today. I doubt he meets criteria for COM. Will monitor over the and continued to encourage meds. Decide on Saturday whether to pursue COM. 02/07/16 14:15 Calmer though still delusional with very poor insight and judgement. CCM. 02/07/16 14:19 Remains acutely psychotic. Refuses Invega Sustenna. Will continue oral Invega , monitor. Subjective: Pt seen, discussed with staff. Reports feeling "really frustrated." States, "Nobody will tell me the truth." Referencing mainly when he can leave the hospital, but this is not entirely clear. Remains generally agitated, pacing, on the fringes of social circles. Appears to attend to internal stimuli constantly, frequently making hand gestures and mouthing words. Continues to deny AH's. Objective: Vital Signs Temp Pulse Resp BP Pulse Ox 36.7 C 78 12 125/68 H 97 02/07/16 06:00 02/07/16 06:00 02/07/16 06:00 02/07/16 06:00 02/07/16 06:00 MSE: Agitated, hostile at times. Affect is o/w constricted. Mood is "bad." TP tangential. TC reveals paranoid ideation and RIS. - Time Spent With Patient Time Spent With Patient: 25" - Pending Discharge Pending Discharge Within 24 Hours: No Pending Discharge Within 48 Hours: No ICD10 Worksheet Patient Problems: Problems Problem Status Diagnosed Hallucinations Acute Paranoia Acute
[2016-02-08] MEDS: PALIPERIDONE 3 MG TAB.ER PO SCH (08:28)
[2016-02-08] MEDS: hydrOXYzine HCL 25 MG TAB PO PRN ×2 (08:55→23:03)
--- NOTE | 2016-02-08 16:07 | SOAPPROG ---
SOAP Progress Note Assessment/Plan: Assessment: Plan: 01/25/16 12:37 Remains quite ill. Refusing medication treatment. Will place on STC due to grave disability and continue to encourage compliance. Will monitor to see if sx's improve with distance from substance use. May consider COM if no improvement. 01/26/16 16:27 Remains psychotic. Etiology of abnormal movements is unclear. Will continue to encourage meds, monitor. 01/27/16 16:49 More organized today. I doubt he meets criteria for COM. Will monitor over the and continued to encourage meds. Decide on Saturday whether to pursue COM. 02/07/16 14:15 Calmer though still delusional with very poor insight and judgement. CCM. 02/07/16 14:19 Remains acutely psychotic. Refuses Invega Sustenna. Will continue oral Invega , monitor. 02/08/16 16:07 Improved. Will monitor for cheeking. Continue to encourage Sustenna. Subjective: Pt seen, discussed with staff. Reports feeling "better" today. Notably less irritable. Able to reasonably discuss his meds and treatment plan. Paranoid about the Invega, afraid it will "kill my brain." Hesitant to take full dose, cheeked half earlier today and then told RN. States he will take the full dose from now on. Told CC he was willing to do the Sustenna but does not agree to it with me. Continues to respond to IS frequently. Displays odd facial and mouth movements, jerky, erratic body movements. Objective: Vital Signs Temp Pulse Resp BP Pulse Ox 36.4 C 103 H 12 112/58 L 96 02/08/16 06:00 02/08/16 06:00 02/08/16 06:00 02/08/16 06:00 02/08/16 06:00 MSE: Calmer today, coop. Pleasant and interactive with no hostility. Affect is o/w euthymic, expansive at times. Mood is "OK." TP more linear, tangential at times. TC reveals paranoid thoughts, IOR's and RIS. - Time Spent With Patient Time Spent With Patient: 25" - Pending Discharge Pending Discharge Within 24 Hours: No Pending Discharge Within 48 Hours: No ICD10 Worksheet Patient Problems: Problems Problem Status Diagnosed Hallucinations Acute Paranoia Acute
[2016-02-09] MEDS: PALIPERIDONE 3 MG TAB.ER PO SCH (08:52)
--- NOTE | 2016-02-09 17:08 | SOAPPROG ---
SOAP Progress Note Assessment/Plan: Assessment: Plan: 01/25/16 12:37 Remains quite ill. Refusing medication treatment. Will place on STC due to grave disability and continue to encourage compliance. Will monitor to see if sx's improve with distance from substance use. May consider COM if no improvement. 01/26/16 16:27 Remains psychotic. Etiology of abnormal movements is unclear. Will continue to encourage meds, monitor. 01/27/16 16:49 More organized today. I doubt he meets criteria for COM. Will monitor over the and continued to encourage meds. Decide on Saturday whether to pursue COM. 02/07/16 14:15 Calmer though still delusional with very poor insight and judgement. CCM. 02/07/16 14:19 Remains acutely psychotic. Refuses Invega Sustenna. Will continue oral Invega , monitor. 02/08/16 16:07 Improved. Will monitor for cheeking. Continue to encourage Sustenna. 02/09/16 17:08 SLow improvement. CCM. Subjective: Pt seen, discussed with staff. Reports feeling "really good." Bright and interactive today, no hostility. Remains compliant with meds. Objective: Vital Signs Temp Pulse Resp BP Pulse Ox 36.3 C 62 14 136/78 H 99 02/09/16 06:20 02/09/16 06:20 02/09/16 06:20 02/09/16 06:20 02/09/16 06:20 MSE: Moderately activated per usual. Affect is bright, stable. Mood is "great. " TP linear at times, tangential at others. TC reveals continued paranoia and IOR's, RIS. - Time Spent With Patient Time Spent With Patient: 15" - Pending Discharge Pending Discharge Within 24 Hours: No Pending Discharge Within 48 Hours: No ICD10 Worksheet Patient Problems: Problems Problem Status Diagnosed Hallucinations Acute Paranoia Acute
[2016-02-10] MEDS: PALIPERIDONE 3 MG TAB.ER PO SCH (08:55)
--- NOTE | 2016-02-10 11:27 | SOAPPROG ---
SOAP Progress Note Assessment/Plan: Assessment: Plan: 01/25/16 12:37 Remains quite ill. Refusing medication treatment. Will place on ST due to grave disability and continue to encourage compliance. Will monitor to see if sx's improve with distance from substance use. May consider COM if no improvement. 01/26/16 16:27 Remains psychotic. Etiology of abnormal movements is unclear. Will continue to encourage meds, monitor. 01/27/16 16:49 More organized today. I doubt he meets criteria for COM. Will monitor over the and continued to encourage meds. Decide on Saturday whether to pursue COM. 02/07/16 14:15 Calmer though still delusional with very poor insight and judgement. CCM. 02/07/16 14:19 Remains acutely psychotic. Refuses Invega Sustenna. Will continue oral Invega , monitor. 02/08/16 16:07 Improved. Will monitor for cheeking. Continue to encourage Sustenna. 02/09/16 17:08 SLow improvement. CCM. 02/10/16 11:24 More anxious and internally focused today. Will continue to monitor for cheeking. CCM. Subjective: Pt seen, discussed with staff. Reports feeling "really good." Slept until 1100 today, states he feels "sleepy today." He remains odd, isolative with continued idiosyncratic, self-directed, internally focused behaviors. Objective: Vital Signs Temp Pulse Resp BP Pulse Ox 36.4 C 72 16 114/72 96 02/10/16 06:29 02/10/16 06:29 02/10/16 06:29 02/10/16 06:29 02/10/16 06:29 - Time Spent With Patient Time Spent With Patient: 15" - Pending Discharge Pending Discharge Within 24 Hours: No Pending Discharge Within 48 Hours: No ICD10 Worksheet Patient Problems: Problems Problem Status Diagnosed Hallucinations Acute Paranoia Acute
[2016-02-10] MEDS: hydrOXYzine HCL 25 MG TAB PO PRN (15:49)
[2016-02-10] MEDS: IBUPROFEN 200 MG TAB PO PRN (15:51)
[2016-02-11] MEDS: PALIPERIDONE 3 MG TAB.ER PO SCH (10:29)
[2016-02-12] MEDS: PALIPERIDONE 3 MG TAB.ER PO SCH (11:08)
--- NOTE | 2016-02-12 12:54 | SOAPPROG ---
SOAP Progress Note Assessment/Plan: Assessment: Plan: 01/25/16 12:37 Remains quite ill. Refusing medication treatment. Will place on STC due to grave disability and continue to encourage compliance. Will monitor to see if sx's improve with distance from substance use. May consider COM if no improvement. 01/26/16 16:27 Remains psychotic. Etiology of abnormal movements is unclear. Will continue to encourage meds, monitor. 01/27/16 16:49 More organized today. I doubt he meets criteria for COM. Will monitor over the and continued to encourage meds. Decide on Saturday whether to pursue COM. 02/07/16 14:15 Calmer though still delusional with very poor insight and judgement. CCM. 02/07/16 14:19 Remains acutely psychotic. Refuses Invega Sustenna. Will continue oral Invega , monitor. 02/08/16 16:07 Improved. Will monitor for cheeking. Continue to encourage Sustenna. 02/09/16 17:08 SLow improvement. CCM. 02/10/16 11:24 More anxious and internally focused today. Will continue to monitor for cheeking. CCM. 02/12/16 12:55 Remains psychotic. I still question whether he is cheeking. CCM. Subjective: LATE ENTRY FOR 02/11/16 Pt seen, discussed with staff. Reports feeling "really good." Noted to continue his idiosyncratic, inwardly directed and impulsive behaviors. These correspond to his jerky, abrupt physical movements. He is compliant with meds. Offers no c/o's. Objective: Vital Signs Temp Pulse Resp BP Pulse Ox 36.8 C 67 14 142/79 H 98 02/12/16 06:04 02/12/16 06:04 02/12/16 06:04 02/12/16 06:04 02/12/16 06:04 MSE: Marginally groomed, pleasant and cooperative. Affect is constricted, stable. Mood is "good." TP tangential with blocking and possible derailment. TC reveals paranoid ideation, RIS, and IOR's. - Time Spent With Patient Time Spent With Patient: 15" - Pending Discharge Pending Discharge Within 24 Hours: No Pending Discharge Within 48 Hours: No ICD10 Worksheet Patient Problems: Problems Problem Status Diagnosed Hallucinations Acute Paranoia Acute
--- NOTE | 2016-02-12 12:59 | SOAPPROG ---
SOAP Progress Note Assessment/Plan: Assessment: Plan: 01/25/16 12:37 Remains quite ill. Refusing medication treatment. Will place on ST due to grave disability and continue to encourage compliance. Will monitor to see if sx's improve with distance from substance use. May consider COM if no improvement. 01/26/16 16:27 Remains psychotic. Etiology of abnormal movements is unclear. Will continue to encourage meds, monitor. 01/27/16 16:49 More organized today. I doubt he meets criteria for COM. Will monitor over the and continued to encourage meds. Decide on Saturday whether to pursue COM. 02/07/16 14:15 Calmer though still delusional with very poor insight and judgement. CCM. 02/07/16 14:19 Remains acutely psychotic. Refuses Invega Sustenna. Will continue oral Invega , monitor. 02/08/16 16:07 Improved. Will monitor for cheeking. Continue to encourage Sustenna. 02/09/16 17:08 SLow improvement. CCM. 02/10/16 11:24 More anxious and internally focused today. Will continue to monitor for cheeking. CCM. 02/12/16 12:55 Remains psychotic. I still question whether he is cheeking. [facility]. 02/12/16 12:58 No interval change. Will work on behavioral plan for cheeking. Subjective: Pt seen, discussed with staff. Reports feeling "great" per usual. He came running, almost jumping, out of his room as I walked by. He was clearly attending to an internal process and didn't see me. Odd, elevated affect with hebephrenic grin. Objective: Vital Signs Temp Pulse Resp BP Pulse Ox 36.8 C 67 14 142/79 H 98 02/12/16 06:04 02/12/16 06:04 02/12/16 06:04 02/12/16 06:04 02/12/16 06:04 MSE: Agitated, impulsive. Grooming is marginal. Affect is o/w constricted. Mood is "great." TP disorganized, blocked. TC reveals RIS. - Time Spent With Patient Time Spent With Patient: 15" - Pending Discharge Pending Discharge Within 24 Hours: No Pending Discharge Within 48 Hours: No ICD10 Worksheet Patient Problems: Problems Problem Status Diagnosed Hallucinations Acute Paranoia Acute
[2016-02-12] MEDS: IBUPROFEN 200 MG TAB PO PRN (23:31)
[2016-02-13] MEDS: PALIPERIDONE 3 MG TAB.ER PO SCH (09:02)
--- NOTE | 2016-02-13 17:07 | SOAPPROG ---
SOAP Progress Note Assessment/Plan: Assessment: Patient with psychosis continuing to respond to internal stimuli. Patient lacks insight. He has no interest in taking Invega. He hopes to substitute Vistaril for Invega that he feels gives him headaches. Plan:Continue medications and treatment. 02/13/16 17:02 02/13/16 17:04 02/13/16 17:07 02/13/16 17:08 02/13/16 17:11 02/13/16 17:12 Subjective: He reports he feels "pretty well." He denies real benefits from the medications. He reports Invega gives him headaches, and he prefers hydoxyzine. He does say he can focus a little better on medications. He denies AH/VH. He reports detoxing from [facility] leading to anxiety. He believes dealing with the anxiety and not being able to find a job lead to his hospitalization. Objective: Vital Signs Temp Pulse Resp BP Pulse Ox 36.6 C 71 16 134/78 H 98 02/12/16 23:29 02/12/16 23:29 02/12/16 23:29 02/12/16 23:29 02/12/16 23:29 Male standing in his room talking to himself. Sat for this interview, but he looked down at times and began talking to himself. Mood- "Pretty great." Affect - Euthymic. Thought Process - linear. thought Content - No SI/HI. +AH responding to internal stimuli. -VH. Insight - Poor. Judgment- Poor. - Time Spent With Patient Time Spent With Patient: 20 minutes - Pending Discharge Pending Discharge Within 24 Hours: No Pending Discharge Within 48 Hours: No ICD10 Worksheet Patient Problems: Problems Problem Status Diagnosed Hallucinations Acute Paranoia Acute
[2016-02-14 00:41] VITALS: BP 122/64; PULSE 87; RESP 14; TEMP 97.3; O2SAT 97
[2016-02-14] MEDS: hydrOXYzine HCL 25 MG TAB PO PRN ×2 (07:53→18:51)
[2016-02-14] MEDS: PALIPERIDONE 3 MG TAB.ER PO SCH (07:53)
--- NOTE | 2016-02-29 16:38 | BDS ---
[f rep st] BEHAVIORAL HEALTH DISCHARGE SUMMARY REASON FOR ADMISSION: Patient is a 20-year-old male with no previous history of formal psy chiatric diagnosis. He had been diagnosed with attention deficit hyperactivity disorder as a child, but had not been treated for many years for that. He had no other contact with mental health system. He was brought in by his father on the day prior to admission because of odd behaviors. He stated he felt paranoid, and felt that people were listening to his thoughts and could control his mind. He made several scenes with a neighbor and then to patrons in a restaurant because he believed they wer e reading his mind. His father stated that these behaviors were escalating and that he needed help. A full description of the events preceding admission can be found in his admission history dated . ADMITTING DIAGNOSES: 1. Psychotic disorder, not otherwise specified. 2. 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 3. 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 4. Homelessness. 5. Unemployment. 6. Mental illness. ADMITTING PHYSICAL EXAMINATION: Performed by Dr. Denny Roman revealed some unusual involuntary movements of his mouth and at times of his arms, though not an identifiable pattern. ADMISSION LABORATORY: CBC was normal. Serum chemistries were normal. Liver function was normal. U rine drug screen showed no substances of abuse. HOSPITAL COURSE: Patient was admitted to the [facility] inpatient unit on an M1 hold. He was quite broad and struggled to interact meaningfully. He did appear to be internally preoccupi ed and distracted, and demonstrated a disorganized thought process. He also demonstrated an odd smil e that he displayed over time that did not seem to correlate with his actual emotional state. He con tinued to voice thoughts of paranoia, thought broadcasting, thought insertion, ideas of reference, an d did eventually endorse auditory hallucinations. His sensorium was clear, and he was alert and orie nted, and there was no evidence of delirium. He did not endorse any thoughts of suicide, homicide, o r violence. He was quite reserved and very hesitant to take any kinds of medication. Dr. Adam young started him on Zyprexa, which he took for a few days and then was refusing. This was then nelida nged to Invega, which we got up to 6 mg daily. He tolerated this quite well and it seemed to really make a difference, but he was hesitant to get the Sustenna shot and refused this during his stay. The patient's hospital course was uncomplicated. He participated actively in therapies and was reaso nably interactive. He was better organized as his hospitalization went on and was able to participat e actively in discharge planning. He stated he wanted to get a job and go back to work, which his fa ther was supportive of. He was willing to follow up with mental health services near his home and ar rangements were made for this. The patient's father was supportive and stated that he would attempt to ensure that he did follow up. CONDITION ON DISCHARGE: Stable. The patient's affect was more normal. His thoughts were more linea r, and his delusions were nearly resolved. He was describing no auditory hallucinations. He was voi cing no thoughts of suicide, homicide, or violence. He was also displaying no aggression or threaten ing behaviors. DISCHARGE MEDICATIONS: Invega 6 mg p.o. q.h.s. DISPOSITION: Patient left the hospital with his father. FOLLOWUP: With mental health services in [place] on 02/14/2015 at 9:30. LEGAL COURSE: Patient was placed on a short-term certification at the expiration of his M1 hold. ort-term certification was discontinued at the time of his discharge. /[id number]/MODL
== END 2016-02-14 20:33 | disposition home or self-care (01) | DRG 885 ==
LOC: BBEH 01-23 16:15
PROVIDERS: ADMIT Psychiatry & Neurology Behavioral Neurology & Neuropsychiatry; ATTEND Psychiatry & Neurology Psychiatry
DX: F29 Unspecified psychosis not due to a substance or known physiological condition (principal); G25.9 Extrapyramidal and movement disorder, unspecified; F12.959 Cannabis use, unspecified with psychotic disorder, unspecified; F20.5 Residual schizophrenia; Z59.0 Homelessness
CPT/HCPCS: G0477; G0480

== ENCOUNTER 2017-11-17 16:46 | Emergency (ER) | payer MEDICAID, OTHER ==
--- NOTE | 2017-11-17 17:05 | EDPHY ---
H & P Stated Complaint: needs psych meds adjusted/changed Time Seen by Provider: 11/17/17 17:05 - Personal History Current Tetanus Diphtheria and Acellular Pertussis (TDAP): No - Medical/Surgical History Hx Asthma: No Hx Chronic Respiratory Disease: No Hx Diabetes: No Hx Cardiac Disease: No Hx Renal Disease: No Hx Cirrhosis: No Hx Alcoholism: No Hx HIV/AIDS: No Hx Splenectomy or Spleen Trauma: No Other PMH: schizoaffective /bipolar - Social History Smoking Status: Never smoked Constitutional: Initial Vital Signs Temperature (C) 36.7 C 11/17/17 16:56 Heart Rate 103 H 11/17/17 16:56 Respiratory Rate 16 11/17/17 16:56 Blood Pressure 128/107 H 11/17/17 16:56 O2 Sat (%) 97 11/17/17 16:56 O2 Delivery Mode Room Air Allergies/Adverse Reactions: No Known Allergies Allergy (Unverified 01/22/16 15:15) Home Medications: Medication Instructions Recorded Hydroxyzine HCl 11/17/17 [place] Aspartate 11/17/17 OLANZapine 11/17/17 Prolixin 1 MG (*) 11/17/17 Medical Decision Making ED Course/Re-evaluation: CHIEF COMPLAINT: Psychiatric evaluation HISTORY OF PRESENT ILLNESS: must have 4 elements: Location, Quality, Severity , Duration, Timing, Context, Modifying Factors, Associated Signs and Symptoms REVIEW OF SYSTEMS: A comprehensive 10 system review of systems is otherwise negative aside from elements mentioned in the history of present illness and medical decision making. PHYSICAL EXAM: General Appearance: Alert, well hydrated, appropriate, and non-toxic appearing. Head: Atraumatic without scalp tenderness or obvious injury Eyes: Pupils equal, round, reactive to light and accommodation, EOMI, no trauma , no injection. Ears: Clear bilaterally, no perforation, normal landmarks Nose: Atraumatic, no rhinorrhea, clear. Throat: There is no erythema or exudates, no lesions, normal tonsils, mucus membranes moist. Neck: Supple, 2+ carotid upstroke, nontender, no lymphadenopathy. Respiratory: No retractions, no distress, no wheezes, and no accessory muscle use. Lungs are clear to auscultation bilaterally. Cardiovascular: Regular rate and rhythm, no murmurs, rubs, or gallops. Bilateral carotid, radial, dorsalis pedis, and posterior tibial pulses intact. Good capillary refill all extremities. Gastrointestinal: Abdomen is soft, nontender, non-distended, no masses, no rebound, no guarding, no peritoneal signs. Musculoskeletal: Normal active ROM of all extremities, atraumatic. Neurological: Alert, appropriate, and interactive. The patient has normal DTRs and non-focal cranial nerves, motor, sensory, and cerebellar exam. Skin: No rashes, good turgor, no nodules on palpation. Past medical history: Past surgical history: Family history: Social history: DIFFERENTIAL DIAGNOSIS: The differential diagnosis for the patient's depression included but was not limited to functional and major depression, situational depression, medication side effect, drugs, and alcohol abuse. MEDICAL DECISION MAKING: Patient is in no acute distress and is hemodynamically stable. We are awaiting psychiatric team's evaluation. Patient has known history of psychiatric disorders and is here for evaluation. Departure - Departure Referrals: NONE *PRIMARY CARE P,. [Primary Care Provider] - As per Instructions
--- NOTE | 2017-11-17 17:53 | EDPHY ---
HPI/HX/ROS/PE/MDM Narrative: CHIEF COMPLAINT: Mental health evaluation HISTORY OF PRESENT ILLNESS: This patient is a 22 year old male with history of schizoaffective disorder and two prior hospitalizations for these. He does not some of the medications he was prescribed at his last hospitalization in May including Prolixin and lithium due to adverse side effects. He does like Zyprexa and hydroxyzine and feels these help stabilize his mood. The patient currently does not have a psychiatrist and states his prescriptions are managed by his general practitioner. Earlier today, the patient became frustrated at home and his parents encouraged him to seek care. Mental health services recommended he come to the ED for evaluation. His mother at bedside is frequently interjecting with concerns regarding the patient's medication state. When I interview the patient alone, he states he feels threatened by his mother's behavior: she stated earlier during my interview that he is not allowed to come home tonight if he is not medicated. The patient denies any suicidal or homicidal ideation. Currently feels his thoughts are clear. He denies any further concerns or complaints. No fever, chills, chest pain, shortness of breath, palpitations, vomiting, diarrhea , urinary complaints, headache, lightheadedness. REVIEW OF SYSTEMS: A comprehensive 10 system review of systems is otherwise negative aside from elements mentioned in the history of present illness and medical decision making. PAST MEDICAL HISTORY: History of schizoaffective disorder. SOCIAL HISTORY: Nonsmoker. Occasional alcohol use. no illicit drug use. VITAL SIGNS: Reviewed by me GENERAL: Well-developed, well-nourished, resting comfortably in no respiratory distress. HEENT: Atraumatic. Eyes: No icterus, no injection. Mouth: moist mucous membranes. No erythema or lesions. Neck: supple with no adenopathy. LUNGS: Clear to auscultation bilaterally, no wheezes, rhonchi or rales. CARDIAC: Regular rate and rhythm, no rubs, murmurs or gallops. ABDOMEN: Soft, nontender, nondistended, bowel sounds normal. BACK: No CVA tenderness. EXTREMITIES: No trauma. No edema. Range of motion is normal throughout. NEURO: Alert and oriented, grossly nonfocal. SKIN: Warm and dry, no rash. PSYCHIATRIC: Normal mentation, no agitation. Portions of this note were transcribed by a biomedical engineering director. I personally performed a history, physical exam, medical decision making, and confirmed accuracy of information the transcribed note. (Mayda Santana) ED Course: 22 year old male presents for discussion of his psychiatric medication regimen and mental health evaluation. Patient is amenable to taking medications to relieve his symptoms and has had positive effects with Zyprexa and hydroxyzine in the past. He is currently well appearing. Plan for labs including CBC, chemistries, EtOH, lithium levels, urine tox screen. Labs largely unremarkable. Urine tox screen positive for marijuana. Dana level low. Mental health aware that the patient is awaiting evaluation. 9:30 p.m.: Patient's care assumed by Dr. Marshall. He will be evaluated by Melissa from [facility]. Disposition per mental health. (Mayda Santana) 2129: I assumed care of this patient from Dr. Santana at shift change. Psyche eval still pending. 2154: Patient has been evaluated by the mental health prospect manager and does not meet criteria for admission. He is safe to be discharged with follow up with a mental health provider. Return precautions provided; patient is comfortable with this plan. (Juan Marshall) MDM: Differential diagnoses for the patient's symptom complex was considered including but not limited to schizoaffective disorder, schizophrenia, drug or alcohol abuse, drug or alcohol withdrawal, medication noncompliance. (Mayda Santana) - Data Points Laboratory Results: Laboratory Results 11/17/17 17:46 11/17/17 17:46 11/17/17 11/17/17 11/17/17 17:46 17:46 17:30 WBC 6.96 10^3/uL 10^3/uL (3.80-9.50) RBC 5.55 10^6/uL 10^6/uL (4.40-6.38) Hgb 17.4 g/dL g/dL (13.7-17.5) Hct 47.8 % % (40.0-51.0) MCV 86.1 fL fL (81.5-99.8) MCH 31.4 pg pg (27.9-34.1) MCHC 36.4 g/dL g/dL (32.4-36.7) RDW 11.4 % L % (11.5-15.2) Plt Count 322 10^3/uL 10^3/uL (150-400) MPV 9.1 fL fL (8.7-11.7) Neut % (Auto) 59.7 % % (39.3-74.2) Lymph % (Auto) 31.8 % % (15.0-45.0) Alfalfa % (Auto) 7.2 % % (4.5-13.0) Eos % (Auto) 0.4 % L % (0.6-7.6) Baso % (Auto) 0.6 % % (0.3-1.7) Nucleat RBC Rel Count 0.0 % % (0.0-0.2) Absolute Neuts (auto) 4.16 10^3/uL 10^3/uL (1.70-6.50) Absolute Lymphs (auto) 2.21 10^3/uL 10^3/uL (1.00-3.00) Absolute Monos (auto) 0.50 10^3/uL 10^3/uL (0.30-0.80) Absolute Eos (auto) 0.03 10^3/uL 10^3/uL (0.03-0.40) Absolute Basos (auto) 0.04 10^3/uL 10^3/uL (0.02-0.10) Absolute Nucleated RBC 0.00 10^3/uL 10^3/uL (0-0.01) Immature Gran % 0.3 % % (0.0-1.1) Immature Gran # 0.02 10^3/uL 10^3/uL (0.00-0.10) Sodium 141 mEq/L mEq/L (135-145) Potassium 3.7 mEq/L mEq/L (3.3-5.0) Chloride 103 mEq/L mEq/L (97-110) Carbon Dioxide 28 mEq/l mEq/l (22-31) Anion Gap 10 mEq/L mEq/L (8-16) BUN 10 mg/dL mg/dL (7-23) Creatinine 0.8 mg/dL mg/dL (0.7-1.3) Estimated GFR > 60 Glucose 114 mg/dL H mg/dL (70-100) Calcium 9.9 mg/dL mg/dL (8.5-10.4) Urine Opiates Screen NEGATIVE (NEGATIVE) Urine Barbiturates NEGATIVE (NEGATIVE) Ur Phencyclidine Scrn NEGATIVE (NEGATIVE) Ur Amphetamine Screen NEGATIVE (NEGATIVE) U Benzodiazepines Scrn NEGATIVE (NEGATIVE) Dana < 0.2 mEq/L L mEq/L (0.6-1.2) Urine Cocaine Screen NEGATIVE (NEGATIVE) U Marijuana (THC) Screen NON-NEGATIVE H (NEGATIVE) Ethyl Alcohol < 10 mg/dL mg/dL (0-10) General Time Seen by Provider: 11/17/17 17:05 Initial Vital Signs: Initial Vital Signs Temperature (C) 36.7 C 11/17/17 16:56 Heart Rate 103 H 11/17/17 16:56 Respiratory Rate 16 11/17/17 16:56 Blood Pressure 128/107 H 11/17/17 16:56 O2 Sat (%) 97 11/17/17 16:56 O2 Delivery Mode Room Air Allergies/Adverse Reactions: No Known Allergies Allergy (Unverified 01/22/16 15:15) Home Medications: Medication Instructions Recorded Hydroxyzine HCl 11/17/17 Dana Aspartate 11/17/17 OLANZapine 11/17/17 Prolixin 1 MG (*) 11/17/17 Departure - Departure Disposition: Home, Routine, Self-Care Clinical Impression: Schizoaffective disorder Qualifiers: Schizoaffective disorder type: unspecified Qualified Code(s): F25.9 - Schizoaffective disorder, unspecified Condition: Good Instructions: Schizoaffective Disorder (ED), Psychotic Disorder (ED) Additional Instructions: 1. Follow-up with your mental health provider as directed. 2. Return to the ED for thoughts of self-harm, racing thoughts or other concerns. Referrals: [facility],. [Clinic] - As per Instructions Report Scribed for: Mayda Santana Report Scribed by: Kait Akers Date of Report: 11/17/17 Time of Report: 19:31
[2017-11-17 18:01] LABS: PLATELET COUNT 322 10^3/uL (150-400)
[2017-11-17 22:11] VITALS: BP 125/92
--- NOTE | 2017-11-17 22:24 | ASMTLCPROG ---
Notes Note: Notes: [facility] asked to meet with pt and mother. Complete mental health evaluation was not requested. Pt presents as calm, cooperative and engaged to answer questions related to mental health. Pt reported he presented today with his mother with the intention of seeking consultation regarding psychotropic medications. Pt had started intake process with his local [facility] and did not f/u with assignment with a Psychiatrist and therapist. Pt states a willingness to take medications. Pt denies SI, HI and hallucinations. Pt was diagnosed with schizoaffective disorder at age 20. He reports he only seldom has a few drinks and is in the process of quitting marijuana. Last report time he used marijuana was about 2 weeks ago. Mother had stated unless pt agrees to follow through with outpt providers he will be unable to remain in her home. Pt and mother were educated on benefits of having a Mental Health specialist as prescriber and how pt may also benefit from group and individual therapy. Pt verbalized a willingness to f/u with local [facility]. Mother agreed to pt returning home. [facility] met separately and jointly with pt and mother to discuss d/c recommendations. Pt d/c home with mother with outpt referrals. Date Signed: 11/17/2017 10:23 PM Electronically Signed By:Melissa Liang
== END 2017-11-17 22:13 | disposition home or self-care (01) ==
DX: F25.9 Schizoaffective disorder, unspecified (principal)
CPT/HCPCS: 80305; G0480

== ENCOUNTER 2018-05-20 10:49 | Inpatient (IN) | payer MEDICAID, OTHER ==
[2018-05-20] MEDS ORDERED: hydrOXYzine HCL 25 MG TAB PO ONE (11:13)
--- NOTE | 2018-05-20 11:16 | EDPHY ---
HPI/HX/ROS/PE/MDM Narrative: CHIEF COMPLAINT: "I need psychiatric evaluation." HPI: The patient is a 23-year-old male with history of schizoaffective disorder. He reports feeling "not well" over last few days. He feels that he needs a medication adjustment. He states he has been compliant with his olanzapine and hydroxyzine but does not feel like these are working. He denies any active hallucinations or suicidal or homicidal ideation. He is here voluntarily. REVIEW OF SYSTEMS: Aside from elements discussed in the HPI, a comprehensive 10-point review of systems was reviewed and is negative. PMH: Schizoaffective disorder. SOCIAL HISTORY: Single. Denies drug abuse. PHYSICAL EXAM: General:Patient is alert, in no acute distress. ENT:Eyes are normal to inspection. ENT inspection normal. Neck: Normal inspection. Full range of motion. Respiratory:No respiratory distress. Breath sounds normal bilaterally. Cardiovascular: Regular rate and rhythm. Strong peripheral pulses. Normal cap refill. Abdomen:The abdomen is nontender to palpation. There are no peritoneal signs. There are normal bowel sounds. Back: Normal to inspection. No tenderness to palpation. Skin: Normal color. No rash. Warm and dry. Extremities: Normal appearance. Full range of motion. Neuro: Oriented x3. Normal motor function. Normal sensory function. Psychiatric: Anxious but pleasant. Denies suicidal ideation or homicidal ideation. (Nba Goodrich) ED Course: Patient has been evaluated by mental health who has placed him on an M1 hold. I have signed patient out to Dr. Zaldivar pending completion of evaluation and planned disposition. (Nba Goodrich) MDM: I assumed care of the patient at 3pm. Update at 6:00 p.m.: The patient has been accepted for inpatient psychiatric hospitalization by Dr. Steve [facility] at [facility]. I have filled out the EMTALA transfer form. (Jose Carlos Zaldivar) - Data Points Laboratory Results: Laboratory Results 05/20/18 11:15 05/20/18 11:15 05/20/18 05/20/18 05/20/18 13:05 11:15 11:15 WBC 4.71 10^3/uL 10^3/uL (3.80-9.50) RBC 5.70 10^6/uL 10^6/uL (4.40-6.38) Hgb 17.4 g/dL g/dL (13.7-17.5) Hct 50.2 % % (40.0-51.0) MCV 88.1 fL fL (81.5-99.8) MCH 30.5 pg pg (27.9-34.1) MCHC 34.7 g/dL g/dL (32.4-36.7) RDW 11.9 % % (11.5-15.2) Plt Count 344 10^3/uL 10^3/uL (150-400) MPV 9.0 fL fL (8.7-11.7) Neut % (Auto) 55.0 % % (39.3-74.2) Lymph % (Auto) 35.5 % % (15.0-45.0) [place] % (Auto) 8.3 % % (4.5-13.0) Eos % (Auto) 0.4 % L % (0.6-7.6) Baso % (Auto) 0.6 % % (0.3-1.7) Nucleat RBC Rel Count 0.0 % % (0.0-0.2) Absolute Neuts (auto) 2.59 10^3/uL 10^3/uL (1.70-6.50) Absolute Lymphs (auto) 1.67 10^3/uL 10^3/uL (1.00-3.00) Absolute Monos (auto) 0.39 10^3/uL 10^3/uL (0.30-0.80) Absolute Eos (auto) 0.02 10^3/uL L 10^3/uL (0.03-0.40) Absolute Basos (auto) 0.03 10^3/uL 10^3/uL (0.02-0.10) Absolute Nucleated RBC 0.00 10^3/uL 10^3/uL (0-0.01) Immature Gran % 0.2 % % (0.0-1.1) Immature Gran # 0.01 10^3/uL 10^3/uL (0.00-0.10) Sodium 140 mEq/L mEq/L (135-145) Potassium 4.8 mEq/L mEq/L (3.5-5.2) Chloride 104 mEq/L mEq/L (97-110) Carbon Dioxide 24 mEq/l mEq/l (22-31) Anion Gap 12 mEq/L mEq/L (6-14) BUN 9 mg/dL mg/dL (7-23) Creatinine 0.8 mg/dL mg/dL (0.7-1.3) Estimated GFR > 60 Glucose 102 mg/dL H mg/dL (70-100) Calcium 9.9 mg/dL mg/dL (8.5-10.4) Urine Opiates Screen NEGATIVE (NEGATIVE) Urine Barbiturates NEGATIVE (NEGATIVE) Ur Phencyclidine Scrn NEGATIVE (NEGATIVE) Ur Amphetamine Screen NEGATIVE (NEGATIVE) U Benzodiazepines Scrn NEGATIVE (NEGATIVE) Urine Cocaine Screen NEGATIVE (NEGATIVE) U Marijuana (THC) Screen NON-NEGATIVE H (NEGATIVE) Medications Given: Discontinued Medications Hydroxyzine HCl (Hydroxyzine Hcl) 50 mg PO EDNOW ONE Stop: 05/20/18 11:14 Last Admin: 05/20/18 11:46 Dose: 50 mg Lorazepam (Ativan) 1 mg PO EDNOW ONE Stop: 05/20/18 13:35 Last Admin: 05/20/18 13:40 Dose: 1 mg General Time Seen by Provider: 05/20/18 11:10 Initial Vital Signs: Initial Vital Signs Temperature (C) 36.9 C 05/20/18 10:59 Heart Rate 88 05/20/18 10:59 Respiratory Rate 16 05/20/18 10:59 Blood Pressure 125/87 H 05/20/18 10:59 O2 Sat (%) 95 05/20/18 10:59 O2 Delivery Mode Room Air Allergies/Adverse Reactions: No Known Allergies Allergy (Unverified 01/22/16 15:15) Home Medications: Medication Instructions Recorded LORazepam [Ativan (*)] 0.5 mg PO ONCE PRN 05/20/18 OLANZapine [OLANZapine (*)] 10 mg PO DAILY 05/20/18 hydrOXYzine HCL 10 mg PO Q8H 05/20/18 Departure - Departure Disposition: [facility] IP Clinical Impression: Acute psychosis Condition: Good Referrals: NONE *PRIMARY CARE P,. [Primary Care Provider] - As per Instructions
[2018-05-20 11:28] LABS: PLATELET COUNT 344 10^3/uL (150-400)
--- NOTE | 2018-05-20 13:26 | ASMTLCPROG ---
Notes Note: Notes: Pt presented to [facility] Ed voluntarily for a mental health evaluation. Pt stated he is feeling very anxious and had a panic attack. Pt stated he had a stressor prior to his panic attack but declined to tell this senior grant writer what happened. Pt staed he "gets confused" Pt was vague and guarded and told this senior grant writer, " You are making me anxious." Pt appeared very anxious and restless. When asked who his psychiatrist is, pt replied, " I don't know. he is in [place]." Pt later stated, " Dr. Doe." Pt states he takes hydroxizine but no other meds. He reports he has a hx of schizophrenia. Pt denies SI/HI/AH/VH. Pt reported he does not feel safe at home. Pt stated there is not any violence in his home, " just bad energy." Pt states he came to the hospital "to relax." Pt then asked to see the nurse. It is unclear to this senior grant writer what this pt needs at this time. Pt will stay in the Ed for observation and possibly re-evaluated. Date Signed: 05/20/2018 01:15 PM Electronically Signed By:Savanah Mclean
[2018-05-20] MEDS ORDERED: LORazepam 1 MG TAB PO ONE (13:34)
[2018-05-20] MEDS ORDERED: LORazepam 1 MG TAB ONE (13:38)
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
--- NOTE | 2018-05-20 17:03 | ASMTTCLDSP ---
[facility] Discharge Disposition Disposition: Answers: Admit Discharge Concerns/Recommendations: Notes: In consultation with [facility] ED physician, Kaden Zaldivar MD and on-call psychiatrist, Steve George MD, both concurred that pt appears to meet 27-65 criteria requiring psychiatric hospitalization as pt appears to be at risk of harm to gravely disabled due to a mental illness condition. Pt was read the Patient Rights and Responsibilities Statement on (date/time), original placed on chart, and was given photocopy of Rights. Pt (signed/declined to sign) the Patient Rights. Pt was given the 3N prohibited belongings list while in the ED. For inpatient Steve George MD admission, the following psychiatrist agreed to accept patient for admission to Behavioral Health ([facility]): Date Signed: 05/20/2018 05:03 PM Electronically Signed By:Savanah Mclean
[2018-05-20] MEDS ORDERED: hydrOXYzine HCL 10 MG TAB PO PRN (19:52)
[2018-05-20] MEDS ORDERED: MAG HYDROX/AL HYDROX/SIMETH 30 ML UDCUP PO PRN (19:53)
[2018-05-20] MEDS ORDERED: ACETAMINOPHEN 325 MG TAB PO PRN (19:53)
[2018-05-20] MEDS ORDERED: MAGNESIUM HYDROXIDE 30 ML UDCUP PO PRN (19:53)
[2018-05-20] MEDS: LORazepam 0.5 MG TAB PO PRN (20:11)
[2018-05-20] MEDS ORDERED: OLANZapine 10 MG TAB PO SCH (21:00)
--- NOTE | 2018-05-21 07:51 | PDCONSULT ---
Pharmacovigilance Specialist Note: INTERNAL MEDICINE CONSULT NOTE DATE OF CONSULTATION: 05/21/2018 REASON FOR CONSULTATION: medical clearance for inpatient behavioral health stay HISTORY OF PRESENT ILLNESS: Mr Dennis is a 23yo M with schizophrenia vs schizoaffective disorder who presented voluntarily to the ED because he was not feeling well and "needed psychiatric evaluation." He felt that he needed a medication adjustment. He reports being compliant with his olanzapine and hydroxyzine but does not feel that they are working. He denies any hallucinations or suicidal or homicidal ideation. No recent fevers, chills, chest pain, dyspnea, abdominal pain, n/v/d, rashes. Of note, he has a prior inpatient psychiatric admission in 2016, which I have reviewed. PAST MEDICAL HISTORY: possible paranoid schizophrenia vs schizoaffective d/o, ADHD PAST SURGICAL HISTORY: none MEDICATIONS: olanzapine, hydroxyzine ALLERGIES: nkda SOCIAL HISTORY: single. prior regular marijuana use but denies currently. denies alcohol, tobacco, and other illicits. living with mother in [place] FAMILY HISTORY: mother with mental illness, father with alcohol abuse history REVIEW OF SYSTEMS: 10 point review was negative except per HPI. VITALS: Reviewed. Afebrile and within normal limits. PHYSICAL EXAM: No acute distress, unkempt. Appears stated age. Anicteric sclera , eomi, perrl. No thyromegaly. Clear oropharynx. RRR, no murmurs. Lungs clear bilaterally. Abdomen soft and nontender. No rashes. No leg edema or JVD. CN 2- 12 intact, moving all extremities. Appropriate. LABORATORY STUDIES: Reviewed. Normal CBC and BMP. Utox + for marijuana but otherwise negative. ASSESSMENT/PLAN: 1. Psychiatric issues: Management per inpatient psychiatric team. I see no medical contraindications for Mr Dennis's continued stay in the inpatient behavioral health unit. Thank you for this consult. Please do not hesitate to contact the internal medicine/hospitalist team if there should be further need for medical evaluation.
[2018-05-21] MEDS ORDERED: OLANZapine 10 MG TAB PO SCH (08:41)
[2018-05-21] MEDS ORDERED: RISPERIDONE 1 MG ODT TAB SL SCH (09:00)
[2018-05-21] MEDS: LORazepam 0.5 MG TAB PO PRN ×2 (10:07→21:52)
--- NOTE | 2018-05-21 12:55 | BAPA ---
[f rep st] ADMISSION PSYCHIATRIC ASSESSMENT DATE OF SERVICE: 05/21/2018 CHIEF COMPLAINT: "I was anxious at home. I did not feel safe at home." HISTORY OF PRESENT ILLNESS: From the ED note dated 05/20/18, patient with history of schizoaffective disorder presented to the emergency department reporting not feeling well for the last few days. Patient requested a medication adjustment. Patient reported being compliant with olanzapine and hydroxyzine, but reported he felt like the medications were not working. From the [facility] evaluation dated 05/20/18, patient was placed on a 72-hour M1 hold with start date and time of 05/20/18, at 3:12 p.m. Patient reported to the [facility]LC retort firer "feeling some anxiety and stuff." Patient was a poor historian; during the [facility] evaluation appeared distracted, delayed speech. Patient was admitted involuntarily and on an M1 hold due to being gravely disabled due to a mental illness. Patient was hospitalized for safety, crisis stabilization, and medication evaluation. Patient refuses to meet with this GEOGRAPHIC INFORMATION SYSTEMS DIRECTOR for full psychiatric evaluation and history. Patient did provide some information. Patient stated the reason he decided to go to the emergency room was he "did not feel safe at home." Patient describes current psychiatric symptoms as disorganized thoughts. Patient reports Zyprexa "makes me too tired and dizzy" and reported he came to the hospital for a medication change. Patient reports no other psychiatric symptoms including symptoms of depression, manda, ADHD, OCD , PTSD, and any other symptom of a psychiatric disorder. The patient reports medications are currently managed by Dr. Doe at [facility]. Reports Dr. Doe is a [facility] physician. Will continue to gather HPI throughout course of patient's hospitalization. PAST PSYCHIATRIC HISTORY: Patient reports past diagnosis of schizophrenia. Patient reports trying Invega in the past and reports "yeah, I tried that one and I did not like it." Patient reports no other details regarding history of trial of Invega. Patient provides no other past psychiatric history to this GEOGRAPHIC INFORMATION SYSTEMS DIRECTOR. From the [facility] evaluation, patient does have a history of schizophrenia. Patient denied suicidality and reports he has never made a suicide attempt. Patient was hospitalized at [facility] on 01/23/16 to 02/14/16. Patient has also been hospitalized at [facility], and the dates of hospitalization at [facility] are unknown at this time. Will continue to gather patient's psychiatric history throughout the course of the patient's hospitalization as patient is more appropriate and is willing to answer past psychiatric history questions. ALLERGIES: No known allergies. CURRENT MEDICATIONS: 1. Tylenol 650 mg p.o. q.4 hours p.r.n. 2. Ativan 0.5 to 1 mg p.o. q.4 hours p.r.n. 3. Maalox syrup 30 mL p.o. q.6 hours p.r.n. 4. Milk of magnesia 30 mL p.o. daily p.r.n. 5. Zyprexa 10 mg p.o. q.h.s. 6. Risperdal M-Tab 1 mg SL daily. PAST MEDICAL HISTORY: Patient denies any medical conditions. Reports he currently does not have a primary care provider, although patient did report his medications are currently managed by a primary care provider. Patient provides no other medical or surgical history. Will continue to gather past medical history throughout the course of the patient's hospitalization as patient is more appropriate and willing to answer interview questions. SOCIAL HISTORY: Patient currently lives with his mother in [place], [place]. Patient's father lives in [place], [place]. Patient's parents are . The patient has 1 brother who lives in [place], [place]. From the [facility] evaluation, the patient's father reported patient's mother has been diagnosed with schizophrenia. Patient's father reported he has a history of abusing alcohol, but has been sober for the past 8 years. Patient's father reported patient and his mother have a co-dependent relationship. The patient has never been and does not have any children. The patient reported he did not finish high school as his family moved to [place] his senior year. Patient is currently unemployed. No history of duty. Patient reports no legal problems. Patient describes restoration as Voodoo. SUBSTANCE USE HISTORY: Patient reports he uses marijuana daily. Patient reports last using marijuana approximately 1 week ago. Patient denies any other substance use. Patient does report trying LSD twice approximately 2 years ago. Patient's urine drug screen was positive for marijuana. A blood alcohol level was 0. FAMILY PSYCHIATRIC HISTORY: From the [facility] evaluation, patient's mother, who patient currently resides with, has a history of schizophrenia. Patient's father reported history of alcohol abuse, has been sober for 8 years. No other substance use history provided at this time. Will continue to evaluate substance use history throughout the course of the patient's hospitalization. ADMISSION LABS AND STUDIES: 1. CBC within normal limits except eosinophils were low at 0.4, absolute eosinophils were low at 0.02. 2. BMP within normal limits except glucose was elevated at 102. 3. Hemoglobin A1c is pending. 4. Liver function within normal limits. 5. Lipid panel within normal limits except LDL cholesterol calculated was elevated at 107, and non-HDL cholesterol was elevated at 132. 6. Toxicology screen was non-negative for THC, negative for all other substances screened. MENTAL STATUS EXAM: The patient is a well-nourished male looking stated chronological age. Attire is appropriate. Dress is casual. Grooming status is inappropriate and disheveled. Ambulation is independent. Gait is normal and coordinated. Posture is normal and relaxed. Eye contact is inappropriate, little, avoided. Motor activity is appropriate with purposeful organized coordinated movements with no involuntary movements noted. Attitude is uncooperative, guarded and defensive. Patient appears disinterested and distractible. Does not relate well to this interviewer. Language production is spontaneous. Rate is hesitant. Latency of response is prolonged with soft tone. Articulation is clear. Patient reports mood as "okay" with constricted, flat and incongruent affect. Patient's thought process is nonlinear and illogical. Thought blocking noted. Patient does not report suicidal or homicidal thoughts, ideas, or plans. Patient denies auditory and visual hallucinations. Patient denies delusions. Patient does not appear to be attending to internal stimuli. Patient is oriented to person, place, and time. Patient's attention and concentration are poor. Patient's insight and judgment are poor. Patient does not report undesirable side effects from current medications. DIAGNOSES: Based on the patient's history and current presentation, the patient 's diagnoses are: 1. Schizophrenia. 2. Cannabis use disorder, moderate. FORMULATION: The patient is a 23-year-old male, single, unemployed, currently living with his mother in [place], [place] who presents to the hospital involuntarily due to being gravely disabled and is currently on an M1 hold. Patient requires continued care because of current acute psychosis. The patient presents with problems of increased psychosis, notably agitation and paranoia. Patient has a past psychiatric history of schizophrenia and is currently treated with Zyprexa 15 mg p.o. q.h.s. Patient reports a poor response to Zyprexa, and he is requesting a medication change. Patient is a high safety risk due to current acute psychosis. Protective factors while hospitalized include ongoing safety checks, active involvement in treatment and support from our treatment team. Patient could benefit from inpatient hospitalization for safety, crisis stabilization, and medication evaluation. PLAN: 1. Medications: After reviewing options, risks and benefits with the patient, patient agrees to continue current medications listed above. No other medication changes at this time as more time is needed to determine ongoing tolerability and efficacy. Plan is to continue to observe patient for response and side effects from medications, and ongoing monitoring and evaluation. 2. Review with patient informed consent and recommendations for psychotropic medication treatment listed below 3. Labs: no additional labs at this time 4. Therapy: continue milieu and group therapy 5. Further investigation including gathering information from patients relatives and review of past case records to inform treatment plan. 6. Safety/Wellness plan and follow-up outpatient appointments to be established prior to discharge. Next steps are for patient to meet with manager medicare marketing to plan a safe discharge plan and establish outpatient services for ongoing treatment. 7. Confer with inpatient treatment team regarding treatment plan. 8. Address psychosocial stressors by meeting with career and transition teacher to establish discharge plan including referrals for outpatient services. 9. Legal status: M1 10. Consider discharge this week if patient is in stable condition, safe, and has a safe discharge plan. 11. Substance abuse interventions: cannabis ESTIMATED LENGTH OF STAY: 3-5 days PSYCHOTROPIC MEDICATION TREATMENT INFORMED CONSENT and RECOMMENDATIONS: Review nature of condition, diagnosis, and prognosis. Review nature and purpose of psychotropic medication treatment. Review type of psychotropic medications being ordered. Review risk and benefits of psychotropic medication treatment. Review probable length of time will need to take medications. Review risk and benefits of not undergoing psychotropic medication treatment. Review alternative treatments to psychotropic medications. Review psychotropic medications contraindications, drug-drug interactions, side effects, and importance of reporting any side effects to a psychiatric provider or nurse during inpatient hospitalization, and upon discharge to patients psychiatric outpatient provider, primary care provider, or other health personal care service provider. Review importance of asking a nurse, psychiatric provider, or primary care provider any questions or problems concerning the psychotropic medications. Verify patient understands the information that has been provided, and understands, accepts, and agrees to psychotropic medications. Review patients safety plan and importance of patient to communicate to staff while hospitalized if patient is ever a danger to self/others, or unable to care for self, and upon discharge, the importance for patient to contact [facility] or [facility], or go to the nearest emergency room, if patient is ever a danger to self/others, or unable to care for self. Recommend that upon discharge patient establish medication management treatment with a psychiatric provider, establishes routine therapy appointments, and follow-up with primary care provider. Verify patient understands and agrees to these recommendations. /[id number]/MODL MTDD
--- NOTE | 2018-05-21 14:14 | PDMN ---
Medical Necessity Medical necessity: Pt meets inpt criteria per MD order and [facility], Schizophrenia Spectrum Disorders, Adult: Inpatient Care, 6 days. 23 y/o w/hx schizoaffective disorder admitted w/schizophrenia and cannabis use disorder, moderate, on M1 Hold due to being gravely disabled due to mental illness and requires cont inpt psychiatric care b/c of current psychosis.
--- NOTE | 2018-05-21 14:33 | ASMTBHMTP ---
Master Treatment Plan Master Treatment Plan Answers: Impaired Reality for: Date: 05/21/2018 Diagnosis on Admission: Schizophrenia 295.90 (F20.) Expected length of stay: 3-7 Reason for admission: Notes: The patient stated, "I don't want to worry. I want to control what is going on. I'm very sensitive to sound and people were yelling and distracting my thoughts. I felt like they were trying to read my mind." Patient's stated presenting problems: Notes: The patient stated, "I've been hanging on to things from the past that were bothering me. It sucks...Not feeling like myself. I know it will take a few days to get better." Patient's goals for treatment: Notes: The patient requested a medication change; Olanzapine to Risperidone. The patient has a goal to "exercise" during inpatient tx. Patient's strengths: Notes: The patient stated, "I'm a musician." Identify supports outside of hospital: Notes: The patient is supported outside of the hospital by his family and providers. Discharge criteria: Notes: Psychotic symptoms will be reduced or eliminated with return to baseline functioning in affect, thinking, and behavior prior to discharge. Initial disposition plan/considerations: Notes: The patient will likely return home to live with his family, although the patient expressed interested in living independently. Master Treatment Plan Required Signatures Psychiatrist signature: Answers: NILESH Gonzalez: RN on-shift signature: Answers: RN: Patient signature: Answers: Patient: Date Signed: 05/21/2018 02:32 PM Electronically Signed By:Lubna Wakefield
[2018-05-22] MEDS ORDERED: OLANZapine 5 MG TAB PO SCH (05:52)
[2018-05-22] MEDS ORDERED: LORazepam 0.5 MG TAB PO PRN (05:52)
[2018-05-22] MEDS: RISPERIDONE 2 MG ODT TAB SL SCH ×2 (09:53→12:24)
[2018-05-22] MEDS ORDERED: RISPERIDONE 2 MG ODT TAB SL ONE (11:06)
--- NOTE | 2018-05-22 12:38 | ASMTCMCOM ---
CM Note CM Note Notes: CC checked in with ct. He said that he is feeling "a lot better" and that his stress level is 4. He presented with very flat affect and somewhat of delayed speech. Ct. reported that he plans on returning to mom's home in [place] when he discharges. He said that he doesn't have MH providers just a prescriber in [facility]. He was not sure where he would like to get services [facility] or [facility]. Date Signed: 05/22/2018 12:37 PM Electronically Signed By:Anjali Claudio
--- NOTE | 2018-05-22 12:48 | SOAPPROG ---
SOAP Progress Note Assessment/Plan: Assessment: Schizophrenia. Cannabis Use Disorder. Slight improvement noted (see subjective /objective note). Consider discharge tomorrow if stable and safe discharge plan. Family meeting with patient's mother and patient to meet with treatment team to assess readiness to discharge. Plan: 1. Psychotropic medications: After reviewing options, risks, and benefits patient agrees to continue current medications, and agrees to increase Risperdal M-tab to 2 mg po QD and decrease Zyprexa to 5 mg po QHS. No other medication changes as more time is needed to determine ongoing tolerability and efficacy. Plan is to continue to observe patient for response and side effects from medications, and ongoing monitoring and evaluation. Consider increasing Risperdal M-tab to 3 mg and discontinuing Zyprexa tomorrow. 2. Review with patient informed consent and recommendations for psychotropic medication treatment listed below 3. Labs: no additional labs at this time 4. Therapy: continue milieu and group therapy 5. Further investigation including gathering information from patients relatives and review of past case records to inform treatment plan. 6. Safety/Wellness plan and follow-up outpatient appointments to be established prior to discharge. Next steps are for patient to meet with urgent care physician assistant to plan a safe discharge plan and establish outpatient services for ongoing treatment. 7. Confer with inpatient treatment team regarding treatment plan. 8. Psychosocial stressors addressed through correctional casework specialist. 9. Legal status: M1 10. Consider discharge tomorrow if patient is in stable condition, safe, and has a safe discharge plan. 11. Substance abuse interventions: THC PSYCHOTROPIC MEDICATION TREATMENT INFORMED CONSENT and RECOMMENDATIONS: Review nature of condition, diagnosis, and prognosis. Review nature and purpose of psychotropic medication treatment. Review type of psychotropic medications being ordered. Review risk and benefits of psychotropic medication treatment. Review probable length of time patient will need to take medications. Review risk and benefits of not undergoing psychotropic medication treatment. Review alternative treatments to psychotropic medications. Review psychotropic medications contraindications, drug-drug interactions, side effects, and importance of reporting any side effects to a psychiatric provider or nurse during inpatient hospitalization, and upon discharge to patients psychiatric outpatient provider, primary care provider, or other health vocational childcare teacher. Review importance of asking a nurse, psychiatric provider, or primary care provider any questions or problems concerning the psychotropic medications. Verify patient understands the information that has been provided, and understands, accepts, and agrees to psychotropic medications. Review patients safety plan and importance of patient to report to staff while hospitalized if patient is ever a danger to self/others, or unable to care for self, and upon discharge, the importance for patient to contact [facility] or [facility], or go to the nearest emergency room, if patient is ever a danger to self/others, or unable to care for self. Recommend that upon discharge patient establish medication management treatment with a psychiatric provider, establishes routine therapy appointments, and follow-up with primary care provider. Verify patient understands and agrees to these recommendations. 05/22/18 12:50 Subjective: Following up with patient for evaluation of psychosis and safety. Patient reports, "Feeling better." Patient reports taking medications as prescribed, reports no side effects, and agrees to continue current medications. Patient agrees to increase Risperdal M-tab to 2 mg po QD and decrease Zyprexa to 5 mg po QHS. Patient agrees to voluntary hospitalization, and agrees to family meeting with his mother prior to discharge. Patient states he plans to return to live with his mother after discharge. Patient reports he feels safe to return home and live with his mother. Objective: Vital Signs Temp Pulse Resp BP Pulse Ox 36.9 C 94 14 156/90 H 94 05/20/18 19:17 05/20/18 19:17 05/20/18 19:17 05/20/18 19:17 05/20/18 19:17 MSE: The patient is a well-nourished male looking stated chronological age. Attire is appropriate and dress is casual. Grooming status is appropriate. Ambulation is independent. Gait is normal and coordinated. Posture is appropriate and relaxed. Eye contact is inappropriate, at times avoided, scanning. Motor activity is appropriate with purposeful, organized, coordinated movements; with no involuntary movements. Attitude is fairly cooperative. Patient appears reasonably attentive and relates fairly well to this interviewer. Patient appears suspicious at times of this interviewer and staff. Language production is spontaneous. R/R/V normal. Articulation is clear. Patient reports mood as okay with incongruent and inappropriate constricted affect. Patients thought process is linear and fairly logical, some thought blocking noted. Patient denies suicidal thoughts, denies homicidal ideation. Patient denies auditory, visual hallucinations. Patient denies delusions. Patient does not appear to be attending to internal stimuli. Patients attention and concentration are poor. Patient is oriented to person , place. Patients insight and judgment are poor. FAMILY MEETING: Patient's mother agrees to meet with this WEB DESIGN SPECIALIST and pt for family meeting tomorrow at 1100 to assess readiness to discharge. SUBSTANCE ABUSE BRIEF INTERVENTION: Brief intervention regarding the risks of THC abuse is provided to patient with goal to reduce the risk of harm that could result from the continued use of THC, with the general aim to investigate the problem, raise awareness of problem, develop a solution with the patient, recommend a specific change or activity, and motivate the patient toward change. Assess substance abuse behavior and give supportive advice about harm reduction, recommend a reduction in hazardous/at-risk consumption patterns, and facilitate referrals for additional specialized treatment with care giver. Intermediate goal is for the patient to quit and attend outpatient substance abuse treatment. Intervention focus on intermediate goals to allow for more immediate success in the treatment process to keep the patient motivated. Review following with patient: Cannabis use risks: Short- term use: impaired short-term memory, impaired motor coordination, altered judgement, in high doses paranoia and psychosis. Long-term use addiction, diminished life satisfaction and achievement, symptoms of chronic bronchitis, and increased risk of chronic psychosis disorders if predisposition to such disorders. In withdrawal anger, aggression irritability, anxiety and nervousness, decreased appetite or weight loss, restlessness, and sleep difficulties with strange dreams. OUTPATIENT SUBSTANCE ABUSE TREATMENT: Patient referred to outpatient provider and treatment for continued treatment related to substance abuse. - Time Spent With Patient Time Spent With Patient: 15 minutes, met with patient individually. - Pending Discharge Pending Discharge Within 24 Hours: No Pending Discharge Within 48 Hours: No ICD10 Worksheet Patient Problems: Problems Problem Status Onset Acute psychosis Acute Cannabis use disorder, moderate, dependence Acute Schizophrenia Chronic Hallucinations Acute Paranoia Acute
[2018-05-23 06:19] VITALS: BP 143/84
[2018-05-23] MEDS: RISPERIDONE 2 MG ODT TAB SL SCH (08:19)
--- NOTE | 2018-05-23 11:11 | BDS ---
[f rep st] BEHAVIORAL HEALTH DISCHARGE SUMMARY REASON FOR ADMISSION: From the ED note dated 05/20/2018, patient with a history of schizoaffective disorder, presented to the emergency department reporting not feeling well for the last few days. The patient described needing a medication adjustment. Reported he had been compliant with his olanzapine and hydroxyzine, but reported medications were not working. The patient was admitted involuntarily on an M1 hold due to being gravely disabled due to a mental illness. Patient was admitted for safety, crisis stabilization , and medication management. ADMITTING DIAGNOSES: 1. Schizophrenia. 2. Cannabis use disorder, moderate. ADMISSION PHYSICAL EXAM: Patient was seen on 05/21/2018, for history and physical consultation for medical clearance for inpatient psychiatric hospitalization and treatment. The patient was medically cleared for inpatient psychiatric hospitalization and treatment. For further details, please refer to real estate listing consultant note document dated 05/21/2018. ADMISSION LABS: 1. CBC within normal limits except eosinophils were low at 0.4, absolute eosinophils were low at 0.02. 2. BMP within normal limits except glucose is elevated at 102. 3. Hemoglobin A1c within normal limits at 5.0. 4. Liver function within normal limits. 5. Lipid panel within normal limits except LDL cholesterol calculated was elevated at 107 and non-HDL cholesterol is elevated at 132. 6. Toxicology screen nonnegative for THC, negative for all other substances screened. MAJOR PROCEDURES OR TESTS: None. HOSPITAL COURSE: The most prominent symptoms and behaviors while the patient was here were disorganized thought process. The patient reported paranoid delusions and auditory hallucinations. Treatment modalities utilized were milieu and group therapy. Risperidone M-tab was started and titrated to 2 mg p.o. daily to target psychosis symptoms, was tolerated with no report of side effects and with good response. Zyprexa 15 mg p.o. at bedtime was tapered and discontinued with no report of side effects and with good response. Patient has improved considerably with no signs of psychiatric symptoms and no psychiatric symptoms expressed. Patient reports he has improved since admission , states to be in stable condition, feels safe to discharge, and he contracts for safety. Patients response to treatment was good. There were no adverse or unexpected results of treatment. The patient was safe throughout stay, active in treatment, engaged in groups, and was appropriate with staff. Patient met with treatment team prior to discharge to assess readiness to discharge and review discharge plan. The treatment team consensus is the patient in stable condition, has a safe discharge plan, and is ready to discharge today. CONDITION AT DISCHARGE: Patient is in stable condition and is no longer a danger to self or others, and is not gravely disabled due to mental illness. Patient is no longer in need of inpatient level of care, and can be safely and effectively treated within the community. The patients level of risk at time of discharge is low. MSE: The patient is casually dressed and with good hygiene , and looks stated age. Patient is sitting, posture is upright, and position is relaxed. Patient appears awake, alert, and responds appropriately and reasonably during interview. Patient is engaged, relates well to interviewer, and emotional facial expression is appropriate to situation and changes appropriately with topic. Patient is cooperative, makes comfortable eye contact , and movements are voluntary, deliberate, coordinated, and smooth and even with no inappropriate movements. Patient makes laryngeal sounds effortlessly and shares conversation appropriately; pace of conversation is appropriate, and stream of talking is fluent; articulation is clear and understandable; word choice is effortless and appropriate for education level; completes sentences, occasionally pausing to think; rate and volume are appropriate for interview and setting. Patient reports mood as euthymic. Patients affect is stable with full variable range, congruent with mood, and appropriate to speech and circumstances. Patient has linear and logical thinking, with no loose associations, tangential thought, thought blocking, concrete thinking, or any other signs of formal thought disorder. Patient denies suicidal and homicidal ideation, and denies hallucinations and delusions. Patient appears to be a reliable historian with sound judgement and good insight into current condition. Patient has no apparent dysfunction in recent or remote memory noted , and no evidence of gross cognitive dysfunction noted at any point during the interview. DISCHARGE DIAGNOSES: 1. Schizophrenia. 2. Cannabis use disorder, moderate. CURRENT MEDICATIONS: After reviewing options, risks, and benefits with the patient, the patient agrees to continue Risperidone 2 mg p.o. daily. Patient requests a prescription for this medication at time of discharge. Prescription for 30 days is provided. Prescription is reviewed with the patient at time of discharge to ensure accuracy and patient understanding. DISPOSITION: Patient left the hospital independently and voluntarily with his mother after meeting with this GYNECOLOGIST and his mother for a family meeting. FOLLOWUP: curriculum and assessment coordinator reports the appropriate outpatient follow-up services have been established and outpatient appointments have been scheduled. The patient received written instructions with times and dates of outpatient follow-up appointments. The following follow-up recommendations were provided to the patient at discharge: Continue psychotropic medications as prescribed and attend appointments as scheduled. Report any side effects to a psychiatric outpatient provider, a primary care provider, or other health anesthesiologist and critical care. Address any questions or problems concerning the psychotropic medications with a psychiatric outpatient provider, a primary care provider, or other health anesthesiologist and critical care. Contact [facility] or [facility], or go to the nearest emergency room, if you are ever a danger to yourself/others, or unable to care for yourself. As soon as possible, establish a routine medication management treatment with a psychiatric provider, establish routine therapy appointments, and follow-up with a primary care provider. SUBSTANCE ABUSE BRIEF INTERVENTION: Brief intervention regarding the risks of cannabis use is provided to patient with goal to reduce the risk of harm that could result from the continued use of cannabis, with the general aim to investigate the problem, raise awareness of problem, develop a solution with the patient, recommend a specific change or activity, and motivate the patient toward change. Assess substance abuse behavior and give supportive advice about harm reduction, recommend a reduction in hazardous/at-risk consumption patterns, and facilitate referrals for additional specialized treatment with director of home care hospice. Intermediate goal is for the patient to quit and attend outpatient therapy/treatment. Intervention focus on intermediate goals to allow for more immediate success in the treatment process to keep the patient motivated. Review following with patient: Cannabis use risks: Short-term use: impaired short-term memory, impaired motor coordination, altered judgement, in high doses paranoia and psychosis. Long-term use addiction, diminished life satisfaction and achievement, symptoms of chronic bronchitis, and increased risk of chronic psychosis disorders if predisposition to such disorders. In withdrawal anger, aggression irritability, anxiety and nervousness, decreased appetite or weight loss, restlessness, and sleep difficulties with strange dreams. OUTPATIENT SUBSTANCE ABUSE TREATMENT: Patient referred to outpatient provider and treatment for continued treatment related to substance abuse. LEGAL COURSE: The patient was admitted on an M1 hold for involuntary inpatient psychiatric hospitalization and treatment. The patient discharged today independently and voluntarily. ATTITUDE AT TIME OF DISCHARGE: The patients attitude was positive at time of discharge, and patient reports looking forward to discharging today. The patient reports he feels safe to discharge, is no longer a danger to himself or others, is in stable condition, and contracts for safety. Patient states he will continue medications as prescribed, and establish medication management treatment with an outpatient provider after discharge. Patient reports he understands the information that has been provided to him, and he understands, accepts, and agrees to psychotropic medications. Patient describes internal protective factors as the coping skills he has learned while hospitalized here, and he plans to continue to practice these coping skills after discharge. LABS AND RADIOLOGY STUDIES: There were no pending labs or studies at time of discharge. ADVANCED DIRECTIVES: There were no advanced directives on file, and patient was full code during this hospitalization. The following psychotropic medication treatment informed consent and recommendations were provided to the patient at time of discharge. Patient reports he understands, accepts, and agrees to the information that has been provided. PSYCHOTROPIC MEDICATION TREATMENT INFORMED CONSENT and RECOMMENDATIONS: Review nature of condition, diagnosis, and prognosis. Review nature and purpose of psychotropic medication treatment. Review type of psychotropic medications being prescribed. Review risk and benefits of psychotropic medication treatment. Review probable length of time will need to take medications. Review risk and benefits of not undergoing psychotropic medication treatment. Review alternative treatments to psychotropic medications. Review psychotropic medications contraindications, side effects, and importance of reporting any side effects to a psychiatric provider, primary care provider, or other health anesthesiologist and critical care. Review importance of asking a psychiatric provider or primary care provider any questions or problems concerning the psychotropic medications. Review safety plan and the importance to contact [facility] or [facility] , or go to the nearest emergency room, if ever a danger to yourself/others, or unable to care for yourself. Recommend upon discharge to establish routine medication management treatment with a psychiatric provider, establish routine therapy appointments, and follow-up with a primary care provider. Verify patient understands, accepts, and agrees to the information that has been provided. /[id number]/MODL MTDD
--- NOTE | 2018-05-23 12:44 | ASMTBHDC ---
Notes Note: Notes: This mortgage or loan underwriter attempted to contact the patient's PCP, Dr. Doe to coordinate follow up care. This mortgage or loan underwriter also sent an [facility] referral and scheduled an appointment for registration during walk-in clinic hours on behalf of the patient; see below. The patient participated in a family meeting with his mother and the provider. The patient reported feeling "less distracted, confused, and annoyed" and "more calm." [facility] [address] [place] [address], [address] [place] [address] O#[phone] M/W: 09:00-14:00 Next appointment for registration on May 26 @ 10:00. Date Signed: 05/22/2018 03:20 PM Electronically Signed By:Lubna Wakefield
== END 2018-05-23 12:15 | disposition home or self-care (01) | DRG 885 ==
LOC: BBEH 18:35
PROVIDERS: ADMIT Psychiatry & Neurology Psychiatry; ATTEND Psychiatry & Neurology Psychiatry
DX: F20.0 Paranoid schizophrenia (principal); F12.959 Cannabis use, unspecified with psychotic disorder, unspecified
CPT/HCPCS: 80305

== ENCOUNTER 2018-06-06 15:51 | Emergency (ER) | payer MEDICAID, OTHER ==
--- NOTE | 2018-06-06 16:13 | EDPHY ---
H & P Stated Complaint: off psych meds - Personal History Current Tetanus/Diphtheria Vaccine: Unsure Current Tetanus Diphtheria and Acellular Pertussis (TDAP): Unsure - Medical/Surgical History Hx Asthma: No Hx Chronic Respiratory Disease: No Hx Diabetes: No Hx Cardiac Disease: No Hx Renal Disease: No Hx Cirrhosis: No Hx Alcoholism: No Hx HIV/AIDS: No Hx Splenectomy or Spleen Trauma: No Other PMH: schizoaffective /bipolar - Social History Smoking Status: Current every day smoker Time Seen by Provider: 06/06/18 16:11 Constitutional: Initial Vital Signs Temperature (C) 36.5 C 06/06/18 15:56 Heart Rate 82 06/06/18 15:56 Respiratory Rate 16 06/06/18 15:56 Blood Pressure 137/97 H 06/06/18 15:56 O2 Sat (%) 92 06/06/18 15:56 O2 Delivery Mode Room Air Allergies/Adverse Reactions: No Known Allergies Allergy (Unverified 01/22/16 15:15) Home Medications: Medication Instructions Recorded Risperidone 2 mg PO DAILY 30 Days #30 tablet 05/23/18 Medical Decision Making ED Course/Re-evaluation: CHIEF COMPLAINT: Off psych meds HISTORY OF PRESENT ILLNESS: This patient is a 22 year old male with history of schizoaffective disorder and three prior hospitalizations for this. During his last hospitalization in May 2017 he stopped taking Prolixin and lithium due to adverse side effects. He did take Ativan during his last ED visit, which made him feel better. He does like Zyprexa and hydroxyzine and feels these help stabilize his mood. The patient currently does not have a psychiatrist and states his prescriptions are managed by his general practitioner. However, he states that he does not take his meds every day. The patient denies any suicidal or homicidal ideation. Currently he feels "dizzy and not well". He denies any further concerns or complaints. No fever, chills, chest pain, shortness of breath, palpitations, vomiting, diarrhea , urinary complaints, headache, lightheadedness. REVIEW OF SYSTEMS: A comprehensive 10 system review of systems is otherwise negative aside from elements mentioned in the history of present illness and medical decision making. PHYSICAL EXAM: HR, BP, O2 Sat, RR. Temp noted General Appearance: Alert, well hydrated, appropriate, and non-toxic appearing. Head: Atraumatic without scalp tenderness or obvious injury Eyes: Pupils equal, round, reactive to light and accommodation, EOMI, no trauma , no injection. Ears: Clear bilaterally, no perforation, normal landmarks Nose: Atraumatic, no rhinorrhea, clear. Throat: There is no erythema or exudates, no lesions, normal tonsils, mucus membranes moist. Neck: Supple, 2+ carotid upstroke, nontender, no lymphadenopathy. Respiratory: No retractions, no distress, no wheezes, and no accessory muscle use. Lungs are clear to auscultation bilaterally. Cardiovascular: Regular rate and rhythm, no murmurs, rubs, or gallops. Bilateral carotid, radial, dorsalis pedis, and posterior tibial pulses intact. Good capillary refill all extremities. Gastrointestinal: Abdomen is soft, nontender, non-distended, no masses, no rebound, no guarding, no peritoneal signs. Musculoskeletal: Normal active ROM of all extremities, atraumatic. Neurological: Alert, appropriate, and interactive. The patient has normal DTRs and non-focal cranial nerves, motor, sensory, and cerebellar exam. Skin: No rashes, good turgor, no nodules on palpation. Psych: Flat affect. Normal mentation, no agitation. Past medical history: Schizoaffective disorder. Past surgical history: Denies Family history: Denies Social history: Nonsmoker. Occasional alcohol use. no illicit drug use. DIAGNOSTICS/PROCEDURES/CRITICAL CARE TIME: Not indicated. DIFFERENTIAL DIAGNOSIS: The differential diagnosis for the patient's depression included but was not limited to functional and major depression, situational depression, medication side effect, drugs, and alcohol abuse. MEDICAL DECISION MAKING: The patient is a 22 year old male with history of schizoaffective disorder and three prior hospitalizations for this. During his last hospitalization in May 2017 he stopped taking Prolixin and lithium due to adverse side effects. He did take Ativan during his last ED visit, which made him feel better. He does like Zyprexa and hydroxyzine and feels these help stabilize his mood. He is not taking his medications as prescribed. On exam he has a flat affect. We are awaiting psychiatric team's evaluation. Patient has known history of psychiatric disorders and is here for evaluation. 2230: Patient care turned over to Dr. Schneider at shift change. (Juan Marshall) Other Provider: [id number] Marshall pending mental health evaluation. 07 Patient signed out to Dr. Santana pending mental health evaluation. (Hadley Schneider) I assumed care of the patient from Dr. Morgan at 7:00 a.m.. Patient was seen and evaluated by Lubna with [facility]. His primary concern regarding his medications is that he becomes dizzy, somewhat lightheaded, and feels like he has a brain fog in the afternoon. This has developed after he was started on risperidone. Course was discussed with Dr. Velez. Recommendations are that the patient should take his meds at night and continue taking the risperidone. [facility] will [facility] at [facility] on Saturday for further evaluation as well as medication management. Patient is comfortable with this plan. (Mayda Santana) - Data Points Laboratory Results: Laboratory Results 06/06/18 16:45 06/06/18 16:45 Medications Given: Discontinued Medications Lorazepam (Ativan) 2 mg PO EDNOW ONE Stop: 06/06/18 23:36 Last Admin: 06/06/18 23:35 Dose: 2 mg Olanzapine (Zyprexa Injection) 10 mg IM EDNOW ONE Stop: 06/07/18 04:36 Last Admin: 06/07/18 05:49 Dose: Not Given Risperidone (Risperdal) 2 mg PO ONCE ONE Stop: 06/07/18 08:30 Last Admin: 06/07/18 08:36 Dose: Not Given Departure - Departure Disposition: Home, Routine, Self-Care Clinical Impression: Side effect of medication, Noncompliance with medication regimen Instructions: Risperidone (By mouth), Olanzapine (By mouth) Additional Instructions: Your situation has been discussed with Dr. Velez, the psychiatrist on-call. Recommendations at this time or for you to take you're risperidone at night. This may help alleviate the dizziness and brain fog you are experiencing in the afternoon. Please follow up at [facility] on Saturday. You may need other changes to your medications if the switch to taking the meds at night is not helpful this does not seem to be helpful. Referrals: NONE *PRIMARY CARE P,. [Primary Care Provider] - As per Instructions Report Scribed for: Juan Marshall Report Scribed by: Elisha Avila Date of Report: 06/06/18 Time of Report: 16:58
[2018-06-06 16:50] LABS: PLATELET COUNT 351 10^3/uL (150-400)
[2018-06-06] MEDS ORDERED: LORazepam 1 MG TAB ONE (23:34)
[2018-06-06] MEDS ORDERED: LORazepam 1 MG TAB PO ONE (23:35)
[2018-06-07] MEDS: OLANZapine 10 MG/2 ML VIAL IM ONE ×2 (04:35→05:49)
[2018-06-07] MEDS ORDERED: risperiDONE 2 MG TAB PO ONE (08:29)
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
--- NOTE | 2018-06-07 14:29 | ASMTTCLDSP ---
[facility] Discharge Disposition Disposition: Answers: Discharge If Answers: Yes DISCHARGED: Patient/family given suicide hotline info & SAMHSA brochure? Disposition Notes: Notes: The patient stated commitment or ability to keep self safe and denied thoughts of self harm or harm to others. The patient expressed a desire to f/u with [facility]. Discharge Concerns/Recommendations: Notes: In consultation with [facility] ED physician, Mayda Santana MD, and on-call psychiatrist, Bogdan Velez MD, both concurred that the patient does not appear to meet 27-65 criteria requiring psychiatric hospitalization as patient does not appear to be an imminent risk of harm to self/others/gravely disabled due to a mental illness condition. Was patient given the Answers: Not applicable Inpatient Behavioral Health Prohibited Belongings List while in the ED? Date Signed: 06/07/2018 02:28 PM Electronically Signed By:Lubna Wakefield
[2018-06-07 14:59] VITALS: BP 132/93
== END 2018-06-07 15:02 | disposition home or self-care (01) ==
DX: F20.89 Other schizophrenia (principal); Z91.14 Patient's other noncompliance with medication regimen
CPT/HCPCS: 80305; G0480